=== PATIENT | female | born 2000 | race Caucasian/White ===

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

== ENCOUNTER 2018-01-25 20:23 | Inpatient (IN) ==
[2018-01-25] MEDS ORDERED: 0.9 % Sodium Chloride 1,000 ML IVC ONE (20:58)
[2018-01-25] MEDS ORDERED: Ketorolac 30 MG/ML VIAL IVP ONE (20:58)
[2018-01-25] MEDS ORDERED: Ondansetron 4 MG/2 ML VIAL IVP ONE (20:58)
[2018-01-25 21:33] LABS: Bilirubin,Urine Moderate (Negative); Blood,Urine Negative (Negative); Clarity,Urine Clear (Clear); Color,Urine Orange (Yellow); Glucose,Urine (UA) Normal (Normal); Ketones,Urine Negative (Negative); Leukocyte Esterase,Urine Trace (Negative); Nitrite,Urine Negative (Negative); Protein,Urine Trace mg/dL (Neg-Trace); Specific Gravity,Urine 1.025 (1.010-1.025); Urobilinogen,Urine Normal (Normal)
[2018-01-25 21:33] LABS: Basophils % 0.4 %; Eosinophils # 0.1 K/mcL (0.0-0.6); Eosinophils % 2.5 %; Hematocrit 37.1 % (35.3-44.9); Hemoglobin 12.3 g/dL (11.5-15.4); Immature Granulocytes % 0.2 % (0-4); Lymphocytes # 2.2 K/mcL (0.6-4.6); Lymphocytes % 39.9 %; Mean Corpuscular HGB Conc 33.2 g/dL (31.6-35.5); Mean Corpuscular Hemoglobin 30.8 pg (28.0-33.3); Mean Corpuscular Volume 92.8 fL (83.0-100.0); Mean Platelet Volume 10.6 fL (9.4-12.4); Monocytes # 0.6 K/mcL (0.0-1.3); Monocytes % 10.4 %; Neutrophils # 2.6 K/mcL (1.6-8.9); Platelet Count 262 K/mcL (140-400); Red Cell Distribution Width 13.7 % (11.5-14.5); Segmented Neutrophils % 46.6 %
[2018-01-25 21:35] LABS: Hyaline Casts,Urine None Seen per lpf (None-Few); RBC,Urine 0-3 per hpf (0-3); Squamous Epithelial Cell,Urine Many per lpf (None-Few); WBC,Urine 0-3 per hpf (0-3)
[2018-01-25 21:43] LABS: Bacteria,Urine Few per hpf (None-Few); Mucus,Urine Moderate (Few)
[2018-01-25 21:46] LABS: Alanine Aminotransferase 194 Units/L (7-52); Albumin 4.2 g/dL (3.5-5.7); Albumin/Globulin Ratio 1.4 (1.1-2.2); Alkaline Phosphatase 247 Units/L (34-104); Aspartate Amino Transferase 163 Units/L (13-39); BUN/Creatinine Ratio 15 (6-26); Bilirubin,Direct 1.6 mg/dL (0.0-0.2); Bilirubin,Indirect 0.5 mg/dL (0.0-1.2); Bilirubin,Total 2.1 mg/dL (0.3-1.0); Blood Urea Nitrogen 7 mg/dL (6-20); Calcium 9.6 mg/dL (8.6-10.3); Carbon Dioxide 27 mEq/L (23-29); Chloride 107 mEq/L (98-107); Globulin 2.9 g/dL (2.4-3.5); Glucose 96 mg/dL (70-105); Lipase 33 Units/L (11-82); Osmolality,Calculated 286 (280-300); Potassium 3.7 mEq/L (3.5-5.1); Sodium 139 mEq/L (136-145); Total Protein 7.1 g/dL (6.4-8.9); eGFR For African Americans > 60; eGFR For Non-African Americans > 60
[2018-01-25] MEDS ORDERED: *HR* HYDROcodone/Acet 5/325 mg TABLET PO ONE (21:56)
--- NOTE | 2018-01-25 22:46 | Emergency Department Note ---
Disposition Clinical Impression: Acute cholecystitis, Transaminitis Disposition: Admitted As Inpatient Condition: Fair Time of Disposition: 23:42 Abdominal Pain HPI - General Chief Complaint: ED Abdominal Pain Stated Complaint: Abdominal Pain Time Seen by Provider: 01/25/18 20:51 Source: patient Mode of arrival: ambulatory Limitations: no limitations Nursing Notes Reviewed: Yes Vital Signs Reviewed: Yes - History of Present Illness HPI Narrative: Patient is a 17-year-old female who presents to [facility] ED with a chief complaint of right upper quadrant abdominal pain. States she was seen here for it several days ago and was diagnosed with gallstones. States she was told to follow up on an outpatient basis with surgery. She does have been appointment scheduled though it is not for several weeks. States she cannot wait that long because she has had progressive pain. Denies any nausea, vomiting, fever or chills. No chest pain, difficulty breathing, problems with urination or bowel movements. States her pain has been worsening and she cannot tolerate it. Pt Subjective Complaint: abdominal pain Onset (ago): day(s) Consistency: Worsening Location: RUQ Pain Severity: severe Pain Scale: 10 Quality: aching Radiation: none Migration to: no migration Improves with: nothing Worsens with: eating Associated symptoms: Reports: nausea. Denies: vomiting, diarrhea, fever, chills , constipation, dysuria Treatments prior to arrival: none - Related Data Home Medications Medication Instructions Recorded Confirmed Vit Calc,Iron,Folic 1 each PO DAILY 10/26/17 11/14/17 [ Vitamins] Previous Rx's Medication Instructions Recorded Benzocaine/Menthol [place] 1 appl TP QID PRN aerosol 11/19/17 [Dermoplast [place]] Buprenorphine HCl [Subutex] 8 mg SL BID tab.subl 11/19/17 Ibuprofen [Motrin] 600 mg PO Q6HR PRN #60 tablet 11/19/17 Ibuprofen [Motrin] 600 mg PO Q8HR #20 tab 01/20/18 HYDROcodone/Acet 5/325 mg [[place] 1 tab PO Q6H PRN 2 Days #8 tab 01/22/18 5-325 mg] Ondansetron ODT [Zofran ODT] 4 mg SL Q6HR #8 tab.rapdis 01/22/18 Sulfamethoxazole/Trimeth DS 1 each PO BID #6 tablet 04/04/18 [Bactrim DS] Allergies Allergy/AdvReac Type Severity Reaction Status Date / Time Amoxicillin [From Augmentin] AdvReac Agitated Verified 01/25/18 20:26 clavulanic acid AdvReac Agitated Verified 01/25/18 20:26 [From Augmentin] All systems ED: reviewed and negative except as stated. Abdominal Pain PMH - Past Medical History Medical history: Reports: asthma Female Surgical History: Reports: Tonsillectomy Psychiatric history: Reports: no psych history - Social History Smoking status: Current every day smoker Alcohol use: Reports: none Drug use: Reports: none, opiates Physical Exam - General Limitations: no limitations General appearance: alert - Head Head exam: atraumatic, normocephalic, normal inspection - Eye Eye exam: Present: normal appearance, EOMI - ENT ENT exam: normal exam, normal oropharynx, mucous membranes moist - Neck Neck exam: Present: normal inspection, full ROM, trachea midline - Chest Chest inspection: Present: normal inspection, symmetric chest wall rise - Respiratory Respiratory exam: Present: normal lung sounds bilaterally - Cardiovascular Cardiovascular exam: Present: regular rate, normal rhythm, normal heart sounds - Abdominal Exam Abdominal exam: Present: soft, tenderness, normal bowel sounds Abdominal tenderness: Present: RUQ, moderate - Extremities Exam Extremities exam: Present: normal inspection, full ROM. Absent: tenderness, pedal edema - Back Exam Back exam: Present: normal inspection, full ROM. Absent: tenderness - Neurological Exam Neurological exam: Present: alert, oriented X3 - Psychiatric Psychiatric exam: Present: normal affect, normal mood - Skin Skin exam: Present: warm, dry, intact, normal color Course Course Narrative: Patient seen and examined. Recent diagnosis of cholelithiasis with elevated LFTs. Repeat labwork shows continued transaminitis. Gallbladder ultrasound ordered. I discussed the case with surgeon Dr. Gomez who has accepted patient for admission. Vital Signs Temperature 98.2 F 01/25/18 20:24 Pulse Rate 105 01/25/18 20:24 Respiratory Rate 16 01/25/18 20:24 Blood Pressure 134/87 01/25/18 20:24 O2 Sat by Pulse Oximetry 99 01/25/18 20:24 Temperature 98.2 F 01/25/18 20:24 Pulse Rate 82 01/25/18 22:12 Respiratory Rate 16 01/25/18 22:12 Blood Pressure 88/61 01/25/18 22:12 O2 Sat by Pulse Oximetry 98 01/25/18 21:12 Oxygen Delivery Oxygen Delivery Room Air Abdominal Pain - Medical Records Medical records reviewed: Yes I reviewed the patient's medical records. - Lab Data Lab results reviewed: Yes I reviewed the patient's lab results. Result diagrams: 01/25/18 21:01 01/25/18 21:01 Lab Results 01/25/18 01/25/18 01/25/18 Range/Units 21: 21: 21:01 WBC 5.6 (4.3-11.1) K/mcL RBC 4.00 (3.82-4.97) M/mcL Hgb 12.3 (11.5-15.4) g/dL Hct 37.1 (35.3-44.9) % MCV 92.8 (83.0-100.0) fL MCH 30.8 (28.0-33.3) pg MCHC 33.2 (31.6-35.5) g/dL RDW 13.7 (11.5-14.5) % Plt Count 262 (140-400) K/mcL MPV 10.6 (9.4-12.4) fL Immature Gran % 0.2 (0-4) % Seg Neutrophils % 46.6 % Lymphocytes % 39.9 % Monocytes % 10.4 % Eosinophils % 2.5 % Basophils % 0.4 % Neutrophils # 2.6 (1.6-8.9) K/mcL Lymphocytes # 2.2 (0.6-4.6) K/mcL Monocytes # 0.6 (0.0-1.3) K/mcL Eosinophils # 0.1 (0.0-0.6) K/mcL Basophils # 0.0 (0.0-0.2) K/mcL Sodium 139 (136-145) mEq/L Potassium 3.7 (3.5-5.1) mEq/L Chloride 107 (98-107) mEq/L Carbon Dioxide 27 (23-29) mEq/L BUN 7 (6-20) mg/dL Creatinine 0.46 L (0.60-1.20) mg/dL Est GFR ( Amer) > 60 Est GFR (Non-Af Amer) > 60 BUN/Creatinine Ratio 15 (6-26) Glucose 96 (70-105) mg/dL Calculated Osmolality 286 (280-300) Lactic Acid 1.0 (0.5-2.2) mmol/L Calcium 9.6 (8.6-10.3) mg/dL Total Bilirubin 2.1 H (0.3-1.0) mg/dL Direct Bilirubin 1.6 H (0.0-0.2) mg/dL Indirect Bilirubin 0.5 (0.0-1.2) mg/dL AST 163 H (13-39) Units/L ALT 194 H (7-52) Units/L Alkaline Phosphatase 247 H (34-104) Units/L Serum Total Protein 7.1 (6.4-8.9) g/dL Albumin 4.2 (3.5-5.7) g/dL Globulin 2.9 (2.4-3.5) g/dL Albumin/Globulin Ratio 1.4 (1.1-2.2) Lipase 33 (11-82) Units/L Urine Color (Yellow) Urine Clarity (Clear) Urine pH (5.0-8.0) pH Units Ur Specific [place] (1.010-1.025) Urine Protein (Neg-Trace) mg/dL Urine Glucose (UA) (Normal) mg/dL Urine Ketones (Negative) mg/dL Urine Blood (Negative) Urine Nitrite (Negative) Urine Bilirubin (Negative) Urine Urobilinogen (Normal) mg/dL Ur Leukocyte Esterase (Negative) Urine Microscopic RBC (0-3) per hpf Urine Microscopic WBC (0-3) per hpf Ur Squamous Epith Cells (None-Few) per lpf Urine Bacteria (None-Few) per hpf Hyaline Casts (None-Few) per lpf Urine Mucus (Few) Ur Culture Indicated? (NO) 01/25/18 Range/Units 21:20 WBC (4.3-11.1) K/mcL RBC (3.82-4.97) M/mcL Hgb (11.5-15.4) g/dL Hct (35.3-44.9) % MCV (83.0-100.0) fL MCH (28.0-33.3) pg MCHC (31.6-35.5) g/dL RDW (11.5-14.5) % Plt Count (140-400) K/mcL MPV (9.4-12.4) fL Immature Gran % (0-4) % Seg Neutrophils % % Lymphocytes % % Monocytes % % Eosinophils % % Basophils % % Neutrophils # (1.6-8.9) K/mcL Lymphocytes # (0.6-4.6) K/mcL Monocytes # (0.0-1.3) K/mcL Eosinophils # (0.0-0.6) K/mcL Basophils # (0.0-0.2) K/mcL Sodium (136-145) mEq/L Potassium (3.5-5.1) mEq/L Chloride (98-107) mEq/L Carbon Dioxide (23-29) mEq/L BUN (6-20) mg/dL Creatinine (0.60-1.20) mg/dL Est GFR ( Amer) Est GFR (Non-Af Amer) BUN/Creatinine Ratio (6-26) Glucose (70-105) mg/dL Calculated Osmolality (280-300) Lactic Acid (0.5-2.2) mmol/L Calcium (8.6-10.3) mg/dL Total Bilirubin (0.3-1.0) mg/dL Direct Bilirubin (0.0-0.2) mg/dL Indirect Bilirubin (0.0-1.2) mg/dL AST (13-39) Units/L ALT (7-52) Units/L Alkaline Phosphatase (34-104) Units/L Serum Total Protein (6.4-8.9) g/dL Albumin (3.5-5.7) g/dL Globulin (2.4-3.5) g/dL Albumin/Globulin Ratio (1.1-2.2) Lipase (11-82) Units/L Urine Color [place] A (Yellow) Urine Clarity Clear (Clear) Urine pH 7.0 (5.0-8.0) pH Units Ur Specific [place] 1.025 (1.010-1.025) Urine Protein Trace (Neg-Trace) mg/dL Urine Glucose (UA) Normal (Normal) mg/dL Urine Ketones Negative (Negative) mg/dL Urine Blood Negative (Negative) Urine Nitrite Negative (Negative) Urine Bilirubin Moderate H (Negative) Urine Urobilinogen Normal (Normal) mg/dL Ur Leukocyte Esterase Trace H (Negative) Urine Microscopic RBC 0-3 (0-3) per hpf Urine Microscopic WBC 0-3 (0-3) per hpf Ur Squamous Epith Cells Many H (None-Few) per lpf Urine Bacteria Few (None-Few) per hpf Hyaline Casts None Seen (None-Few) per lpf Urine Mucus Moderate H (Few) Ur Culture Indicated? NO. (NO) - Radiology Data Radiology results reviewed: Yes I reviewed the patient's radiology results. Attestation Statement - Attestation Attestation: I examined this patient and my medical decision-making was reviewed with the Resident Physician. I agree with the documented findings, disposition and treatment plan as described except to the extent set forth below. Patient presents with concern for right upper quadrant pain. There is ongoing transaminitis. There is elevated bilirubin. I would be concerned for acute cholecystitis. We will proceed with admission to the surgical services for further management. Of note the patient has prescribe Suboxone. She denies actually taking this medication however was filled on January 23 this month. I did tell her that it is important to disclose if she is on contract for pain management however she denies getting this medication, filling this medication, seeing a Subutex physician. I did inform the patient that we will be notifying her primary prescriber as she is in breach of her pain management contract. Family members were asked to leave the room before discussing any information with the patient as to prevent breach of HIPPA. I assured the patients privacy prior to discussing pain management with the patient.
[2018-01-25] MEDS ORDERED: 0.9 % Sodium Chloride 1,000 ML IVC SCH (23:45)
[2018-01-25] MEDS ORDERED: Ondansetron 4 MG/2 ML VIAL IVP PRN (23:59)
[2018-01-25] MEDS ORDERED: *HR* OxyCODONE/APAP 10/325 TABLET PO PRN (23:59)
[2018-01-26] MEDS: cefOXitin 2,000 MG in Water for inj. (sterile) 20 ML 20 ML IVPB SCH ×4 (01:04→23:24)
[2018-01-26 06:54] LABS: Basophils % 0.5 %; Eosinophils # 0.2 K/mcL (0.0-0.6); Eosinophils % 2.8 %; Hematocrit 34.6 % (35.3-44.9); Hemoglobin 11.3 g/dL (11.5-15.4); Immature Granulocytes % 0.2 % (0-4); Lymphocytes # 2.1 K/mcL (0.6-4.6); Lymphocytes % 37.5 %; Mean Corpuscular HGB Conc 32.7 g/dL (31.6-35.5); Mean Corpuscular Hemoglobin 30.6 pg (28.0-33.3); Mean Corpuscular Volume 93.8 fL (83.0-100.0); Monocytes # 0.6 K/mcL (0.0-1.3); Monocytes % 9.9 %; Neutrophils # 2.8 K/mcL (1.6-8.9); Platelet Count 253 K/mcL (140-400); Red Blood Count 3.69 M/mcL (3.82-4.97); Red Cell Distribution Width 13.9 % (11.5-14.5); Segmented Neutrophils % 49.1 %
[2018-01-26 07:11] LABS: Alanine Aminotransferase 168 Units/L (7-52); Albumin 3.5 g/dL (3.5-5.7); Albumin/Globulin Ratio 1.4 (1.1-2.2); Alkaline Phosphatase 217 Units/L (34-104); Aspartate Amino Transferase 133 Units/L (13-39); BUN/Creatinine Ratio 13 (6-26); Bilirubin,Total 2.1 mg/dL (0.3-1.0); Blood Urea Nitrogen 7 mg/dL (6-20); Calcium 8.7 mg/dL (8.6-10.3); Carbon Dioxide 23 mEq/L (23-29); Chloride 112 mEq/L (98-107); Globulin 2.5 g/dL (2.4-3.5); Glucose 89 mg/dL (70-105); Osmolality,Calculated 287 (280-300); Potassium 4.1 mEq/L (3.5-5.1); Sodium 140 mEq/L (136-145); eGFR For African Americans > 60; eGFR For Non-African Americans > 60
--- NOTE | 2018-01-26 08:28 | General Surg History&Physical ---
Date of Encounter: 01/26/18 Time of Encounter: 08:20 Assessment and Plan (1) Acute cholecystitis Current Visit: Yes Status: Acute The assessment and plan as outlined above was discussed with the patient and/or family members who expressed understanding and agreement. All questions were answered. The patient has cholelithiasis and biliary sludge. Pericholecystic fluid is equivocal. Gallbladder wall is thickened. She does have right upper quadrant pain which is recurrent and not responsive to narcotic drug therapy. She is currently on Suboxone. She has a personal history of IV drug use and shared needles. Because of her elevated transaminases I think it is important to obtain repeat hepatitis testing prior to surgery. I have requested hepatitis testing which is not traditionally done on the weekends here at [facility]. If the testing is unavailable, I will need to make a decision as to whether or not to proceed with surgery without testing. History of Present Illness Chief complaint: Right upper quadrant pain HPI: Ms. Rivera is a 17 year old female Who is from 2 months ago area she has a previous history of heroin use and is currently on Suboxone program. She presents to the emergency room for recurrent right upper quadrant pain. An ultrasound demonstrated cholelithiasis and biliary sludge as well as pericholecystic fluid suggesting acute cholecystitis gallbladder wall is thickened. It is noted that she did not have sonographic Romero sign. Patient states she has had a worsening right upper quadrant pain and frequency and duration. She sought evaluation in the emergency room and was noted to have normal white blood cell count but elevated bilirubin at 2.1 and elevated transaminases. She was tested for hepatitis 2 months ago with her . She reports the hepatitis testing was negative. She now presents for urgent laparoscopic cholecystectomy. Because of the elevated bilirubin and transaminases with past history of intravenous drug abuse , I would like to repeat her hepatitis testing prior to surgery. Past Med Surg Social Fam HX - Past Medical History Medical history: asthma Psychiatric history: no psych history - Past Surgical History Surgical History: no surgical history - Social History Smoking Status: Current every day smoker Packs per day: 1/2 Smokeless Tobacco Status: No Alcohol use: none Drug use: none, opiates - Family History Father Adopted: No Living Status: Still Living Hx Family Cardiac Disorders: No Hx Family Respiratory Disorders: No Hx Family Cancer: No Hx Family GI Disorders: No Hx Family Endocrine Disorder: No Hx Family Neuromuscular Disorders: No Hx Family Neurologic Disorders: No Hx Family HEENT Disorders: No Hx Family Autoimmune Disorders: No Mother Adopted: [place]: Yanet Rivera Age: 37 Family Member Ethnicity: Non- Living Status: Still Living Hx Family Cardiac Disorders: Yes (HTN) Hx Family Respiratory Disorders: No Hx Family Cancer: No Hx Family GI Disorders: No Hx Family Endocrine Disorder: No Hx Family Neuromuscular Disorders: Yes (migraines) Hx Family Neurologic Disorders: No Hx Family HEENT Disorders: No Hx Family Autoimmune Disorders: No Medications and Allergies Vit Calc,Iron,Folic [ Vitamins] 1 each PO DAILY 10/26/17 [ History] Benzocaine/Menthol [place] [Dermoplast [place]] 1 appl TP QID PRN aerosol 11/19/17 [Rx] Buprenorphine HCl [Subutex] 8 mg SL BID tab.subl 11/19/17 [Rx] Ibuprofen [Motrin] 600 mg PO Q6HR PRN #60 tablet 11/19/17 [Rx] Ibuprofen [Motrin] 600 mg PO Q8HR #20 tab 01/20/18 [Rx] HYDROcodone/Acet 5/325 mg [[place] 5-325 mg] 1 tab PO Q6H PRN 2 Days #8 tab [Rx] Ondansetron ODT [Zofran ODT] 4 mg SL Q6HR #8 tab.rapdis 01/22/18 [Rx] Sulfamethoxazole/Trimeth DS [Bactrim DS] 1 each PO BID #6 tablet 01/22/18 [Rx] 3 Allergy/AdvReac Type Severity Reaction Status Date / Time Amoxicillin [From Augmentin] AdvReac Agitated Verified 01/25/18 20:26 clavulanic acid AdvReac Agitated Verified 01/25/18 20:26 [From Augmentin] Review of Systems All systems PM: The remainder of the systems were reviewed and are negative General Surgery Exam Initial Vital Signs Temp Pulse Resp BP Pulse Ox 98.2 F 105 16 134/87 99 01/25/18 20:24 01/25/18 20:24 01/25/18 20:24 01/25/18 20:24 01/25/18 20:24 - General physical appearance well developed, well nourished, no distress - Neck no masses, no bruits, trachea midline, no lymphadectomy, no venous distension - Respiratory normal expansion, normal respiratory effort, clear to percussion, clear to auscultation - Cardiovascular Cardiovascular exam: Present: RRR, no murmurs/rubs/gallops - Abdomen Abdomen general surgery: Present: bowel sounds present, tender Abdominal Tenderness: Present: RUQ Hernia: Present: none - Integumentary Integumentary general surgery: Present: warm and dry, no abnormal pigmentation - Neurologic Present: CN 2-12 grossly intact, normal coordination, normal sensation - Psychiatric Psychiatric general surgery: Present: appropriate, oriented to person, oriented to place, oriented to time, speech is normal, memory intact Results - Labs 01/26/18 05:47 01/26/18 05:47 Abnormal lab results RBC 3.69 M/mcL (3.82-4.97) L 01/26/18 05:47 Hgb 11.3 g/dL (11.5-15.4) L 01/26/18 05:47 Hct 34.6 % (35.3-44.9) L 01/26/18 05:47 Chloride 112 mEq/L (98-107) H 01/26/18 05:47 Creatinine 0.54 mg/dL (0.60-1.20) L 01/26/18 05:47 Total Bilirubin 2.1 mg/dL (0.3-1.0) H 01/26/18 05:47 Direct Bilirubin 1.6 mg/dL (0.0-0.2) H 01/25/18 21:01 AST 133 Units/L (13-39) H 01/26/18 05:47 ALT 168 Units/L (7-52) H 01/26/18 05:47 Alkaline Phosphatase 217 Units/L (34-104) H 01/26/18 05:47 Serum Total Protein 6.0 g/dL (6.4-8.9) L 01/26/18 05:47 Urine Color [place] (Yellow) A 01/25/18 21:20 Urine Bilirubin Moderate (Negative) H 01/25/18 21:20 Ur Leukocyte Esterase Trace (Negative) H 01/25/18 21:20 Ur Squamous Epith Cells Many per lpf (None-Few) H 01/25/18 21:20 Urine Mucus Moderate (Few) H 01/25/18 21:20 Diabetes panel 01/26/18 Range/Units 05:47 Sodium 140 (136-145) mEq/L Potassium 4.1 (3.5-5.1) mEq/L Chloride 112 H (98-107) mEq/L Carbon Dioxide 23 (23-29) mEq/L BUN 7 (6-20) mg/dL Creatinine 0.54 L (0.60-1.20) mg/dL Glucose 89 (70-105) mg/dL Calcium 8.7 (8.6-10.3) mg/dL AST 133 H (13-39) Units/L ALT 168 H (7-52) Units/L Alkaline Phosphatase 217 H (34-104) Units/L Albumin 3.5 (3.5-5.7) g/dL Calcium panel 01/26/18 Range/Units 05:47 Calcium 8.7 (8.6-10.3) mg/dL Albumin 3.5 (3.5-5.7) g/dL Pituitary panel 01/26/18 Range/Units 05:47 Sodium 140 (136-145) mEq/L Potassium 4.1 (3.5-5.1) mEq/L Chloride 112 H (98-107) mEq/L Carbon Dioxide 23 (23-29) mEq/L BUN 7 (6-20) mg/dL Creatinine 0.54 L (0.60-1.20) mg/dL Glucose 89 (70-105) mg/dL Calcium 8.7 (8.6-10.3) mg/dL Adrenal panel 01/26/18 Range/Units 05:47 Sodium 140 (136-145) mEq/L Potassium 4.1 (3.5-5.1) mEq/L Chloride 112 H (98-107) mEq/L Carbon Dioxide 23 (23-29) mEq/L BUN 7 (6-20) mg/dL Creatinine 0.54 L (0.60-1.20) mg/dL Glucose 89 (70-105) mg/dL Calcium 8.7 (8.6-10.3) mg/dL Total Bilirubin 2.1 H (0.3-1.0) mg/dL AST 133 H (13-39) Units/L ALT 168 H (7-52) Units/L Alkaline Phosphatase 217 H (34-104) Units/L Albumin 3.5 (3.5-5.7) g/dL All other labs normal. - Imaging US - abdomen: image reviewed (I personally reviewed the ultrasound images and the patient has cholelithiasis and gallbladder sludge with a thickened gallbladder wall. Pericholecystic fluid is equivocal)
[2018-01-26 09:47] LABS: Hepatitis A Antibody IgM Nonreactive (Nonreactive); Hepatitis B Core IgM Nonreactive (Nonreactive); Hepatitis B Surface Antigen Nonreactive (Nonreactive); Hepatitis C Virus Antibody Nonreactive (Nonreactive)
[2018-01-26] MEDS ORDERED: cefOXitin 1,000 MG, 0.9 % Sodium Chloride 1,000 ML IR ONE (10:00)
[2018-01-26] MEDS: Albuterol 2.5 MG/3 ML NEBULIZER IH ONE ×2 (11:00→11:25)
--- NOTE | 2018-01-26 11:08 | Anesthesia Evaluation PreOp ---
Date of Encounter: 01/26/18 Time of Encounter: 11:05 - Past History Planned Operation: Lap Cholecystectomy Cardiac History: Denies any Significant Hx Pulmonary History: Smoker INDUSTRIAL ENGINEERING DIRECTOR History: Denies Any Significant HX Other Medical History: Denies Any Significant HX Anesthesia History: No Prior Anesthetic Complications : No Test: Negative Alcohol Use: none Drug use: none, opiates Medications and Allergies Vit Calc,Iron,Folic [ Vitamins] 1 tab PO DAILY 10/26/17 [ History] Buprenorphine HCl [Subutex] 8 mg SL BID tab.subl 11/19/17 [Rx] Ibuprofen [Motrin] 600 mg PO Q8HR #20 tab 01/20/18 [Rx] HYDROcodone/Acet 5/325 mg [[place] 5-325 mg] 1 tab PO Q6H PRN 2 Days #8 tab [Rx] Ondansetron ODT [Zofran ODT] 4 mg SL Q6HR #8 tab.rapdis 01/22/18 [Rx] Sulfamethoxazole/Trimeth DS [Bactrim DS] 1 tab PO BID 01/26/18 [History] 3 Allergy/AdvReac Type Severity Reaction Status Date / Time Amoxicillin [From Augmentin] AdvReac Agitated Verified 01/25/18 20:26 clavulanic acid AdvReac Agitated Verified 01/25/18 20:26 [From Augmentin] - Meds/Allergy Pre-op Review Medications Reviewed: Yes Allergies Reviewed: Yes Beta Blockers on Current Med List: No Anesthesia Results - Labs 01/26/18 05:47 01/26/18 05:47 - Imaging EKG: report reviewed (ST) Anesthesia Exam Vital Signs/O2 Sat/Glucose, Most Current Temp Pulse Resp BP Pulse Ox 01/26/18 08:25 98.3 F 68 14 88/49 96 Height: 5'4 Weight: 142 lbs NPO (# of Hours): MN Pain Scale: 0 - HEENT Pupil (Motor): Pupils equal, EOMI Mallampati: II Teeth: Normal Oral Opening: Greater than 3 - INDUSTRIAL ENGINEERING DIRECTOR LOC: Oriented INDUSTRIAL ENGINEERING DIRECTOR Motor: Normal RUE, Normal LUE, Normal RLE, Normal LLE, Normal Face INDUSTRIAL ENGINEERING DIRECTOR Sensory: Normal: RUE, LUE, RLE, LLE, Face - Cardiac Rhythm: Regular Murmur: None JVD: No Carotid Bruit: No - Pulmonary Breath Sounds: bilateral Clear Respiratory Effort: Symmetrical Anesthesia Assess/Plan ASA Score: 2 Modified Jay Scale for Level of Consciousness: Cooperative, oriented, and tranquil Anesthetic Plan: General, Regional Monitoring Plan: Standard Monitors Recovery Plan: PACU (Discussed GA and TAP Block post op, agrees to proceed)
[2018-01-26] MEDS ORDERED: *HR* Propofol 200 MG/20 ML VIAL IVP ONE (11:14)
[2018-01-26] MEDS ORDERED: *HR* FentaNYL (PF) 100 MCG/2 ML VIAL ONE (11:14)
[2018-01-26] MEDS ORDERED: Lidocaine -MPF 2% 2 ML VIAL ONE (11:16)
[2018-01-26] MEDS ORDERED: Dexamethasone 4 MG/ML VIAL ONE (11:16)
[2018-01-26] MEDS ORDERED: Ondansetron 4 MG/2 ML VIAL ONE (11:16)
[2018-01-26] MEDS ORDERED: *HR* Rocuronium Bromide 50 MG/5 ML VIAL ONE (11:16)
[2018-01-26] MEDS ORDERED: ROPIVACAINE HCL/PF 0.5% 30 ML VIAL ONE (11:19)
[2018-01-26] MEDS ORDERED: Isovue-300 50 ML VIAL IVP ONE (11:20)
[2018-01-26] MEDS ORDERED: EPHEDrine 50 MG/ML VIAL ONE (11:51)
[2018-01-26] MEDS ORDERED: Ketorolac 30 MG/ML VIAL ONE (11:53)
[2018-01-26] MEDS ORDERED: *HR* EPINEPHrine 1 MG/ML AMPUL ONE (11:54)
[2018-01-26] MEDS ORDERED: Neostigmine Methylsulfate 3 MG/3 ML SYRINGE ONE (12:25)
--- NOTE | 2018-01-26 12:37 | Operative Note ---
Date of procedure: 01/26/18 Pre-op diagnosis: Acute cholecystitis and cholelithiasis Post-op diagnosis: other (Acute cholecystitis and cholelithiasis. Choledocholithiasis.) Procedure: Laparoscopic cholecystectomy, cholangiogram Anesthesia: CARLOSA Surgeon: Ady Gomez Was there an operating room assistant present: No Estimated blood loss (cc): 20 Specimen: Gallbladder and contents Condition: stable Disposition: PACU Procedure in Detail: Laparoscopic cholecystectomy and intraoperative cholangiogram Operative procedure after informed consent and appropriate patient identification timeout the patient was taken to the major operating suite and placed supine position given adequate general endotracheal anesthesia the abdomen is prepped and draped in sterile fashion utilizing ChloraPrep standard draping techniques timeout was taken patient is identified. I made a vertical midline incision below the umbilicus dissected down to level of fascia there are 2 traction stitches placed in the abdominal cavity was entered visually. A Sen trocar was placed in the abdomen and the abdomen was insufflated to 15 mmHg pressure CO2 the gallbladder was visualized. A placement 11 port in the subxiphoid area and 2 5 mm ports in the subcostal area. The gallbladder was grasped and elevated. A variety of blunt and sharp dissection techniques were used to isolate the cystic duct and cystic artery. The cystic artery was controlled with 2 surgical clips proximally and one distally and it was divided I placed a surgical clip on the neck the gallbladder and obtained an intraoperative cholangiogram using 10 mL of Isovue. Intraoperative cholangiogram demonstrated 2 ulcers of stricture in the common bile duct one at the confluence and one just above the distal bile duct. There was also an impacted stone and a stone just above this and the distal bile duct. The patient will be held for likely ERCP tomorrow. The cholangiocatheter was removed and the cystic duct was controlled with 2 surgical clips proximally and was divided the gallbladder was removed from the gallbladder fossae using electrocautery. The gallbladder was removed through the #11 port site. I replaced the #11 port and irrigated with copious amounts of antibiotic containing solution. There is no evidence of bleeding or bile leak. All trochars were removed. Fascia was closed with 0 Vicryl skin with 2- 0 and 4-0 Vicryl she tolerated the procedure well and was transferred to recovery in stable condition
--- NOTE | 2018-01-26 13:01 | Anesthesia Procedures ---
Date of Encounter: 01/26/18 Time of Encounter: 11:05 Procedures: Anesthesia - Nerve Block Procedure Date: 01/26/18 Time: 12:45 Pre-op Diagnosis: Acute Cholecystitis Surgical Procedure: Lap Cholecystectomy Checklist: Correct Patient Identifier Blood Thinner: No Monitor Applied: EKG, BP, Pulse Oximetry Indication: Post Op Analgesia Pre-op Neuro Deficits: No Block Type: Other (TAP Block Right side) Catheter placed: No Depth at skin (cm): 3 Sterile Technique: Yes Ultrasound used: Yes Anatomy identified: Yes Visual spread of Local: Yes Neuro Stimulation: No Blood on Needle Aspiration: No Smooth Injection of Local: Yes Pain with Injection of Local: No Prep: Chlorhexadine Needle: 21 x 100 mm Stimuplex Local: Ropivacaine (0.5%), Other (epinephrine wash) Volume (cc): 30 Number of Attempts: 1 Complications: None/effective block Vitals: Vital Signs/O2 Sat/Glucose, Most Current Temp Pulse Resp BP Pulse Ox 01/26/18 12:50 98.3 F 58 14 117/67 100
--- NOTE | 2018-01-26 13:02 | Anesthesia Evaluation Post Op ---
Date of Encounter: 01/26/18 Time of Encounter: 13:10 - Vital Signs Vital Signs: Vital Signs/O2 Sat/Glucose, Most Current Temp Pulse Resp BP Pulse Ox 01/26/18 12:50 98.3 F 58 14 117/67 100 - Lungs Lungs: Clear Ascult./Percussion - Airway Airway: Non-obstructed - Cardiovascular Regular Rate - Mental Status Mental Status: Alert & Oriented, Answers Appropriately - Pain Pain Scale: 1 - Nausea Vomiting Nausea Vomiting: Not Present - Hydration Hydration: Ice chips - Discharge PostOp Status: Transfer Patient to floor
[2018-01-26] MEDS ORDERED: Ondansetron 4 MG/2 ML VIAL IVP PRN (19:46)
[2018-01-26] MEDS: 0.9 % Sodium Chloride 1,000 ML IVC SCH (20:23)
[2018-01-26] MEDS: *HR* OxyCODONE/APAP 10/325 TABLET PO PRN (20:23)
[2018-01-27] MEDS: *HR* OxyCODONE/APAP 10/325 TABLET PO PRN ×3 (02:39→18:31)
[2018-01-27] MEDS: 0.9 % Sodium Chloride 1,000 ML IVC SCH (05:58)
--- NOTE | 2018-01-27 08:31 | General Surgery Progress Note ---
Addendum entered and electronically signed by Gregor Avila DO 01/27/18 10:13 : patient WBC elevated to 14.7 today was 5.7 Prior to surgery. Likely reactive s/ p surgery. Patient is afebrile and incisions are c/d/i. Original Note: <Gregor Avila - Last Filed: 01/27/18 09:38> Date of Encounter: 01/27/18 Time of Encounter: 07:00 - Assessment and Plan (1) Acute cholecystitis Current Visit: Yes Status: Acute Pt is POD #1 s/p Lap choly Patient's intraopperative cholangiogram demonstrated multiple strictures and obstructing gallstone. Consult has been palce to DR. Canela of GI for evaluation for ERCP Patient's pain control is difficult secondary to her Heroina nd now suboxone use. Continue current supportive care. Subjective Patient reports: still having pain, voiding w/o difficulty, no flatus, no bowel movement, afebrile Narrative: Ms. 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 Patient reports pain worse today than presurgery. She is unable to describe her pain but indicates pain is in the epigastric region. Patient denies bowel movement, flatus, N, V, D. Objective Vital Signs - Last 8 Hours Temp Pulse Resp BP Pulse Ox 01/27/18 07:15 98.1 F 66 15 120/80 100 01/27/18 02:40 98.5 F 73 14 100/59 98 Intake and Output 01/26/18 01/27/18 01/27/18 23:59 07:59 15:59 Intake Total 20 / 20 1000 / 1000 Output Total 0 / 0 0 / 0 Balance 20 / 20 1000 / 1000 Intake: IV Fluids 20 / 20 1000 / 1000 0.9 % Sodium Chloride 1,000 ML 1000 / 1000 @ 75 mls/hr IVC .[id number] [facility] Rx #:[id number] Mefoxin 2,000 MG In Water for 20 / 20 inj. (sterile) 20 ML @ 300 mls/ hr IVPB Q8HR [facility] Rx#:[id number] Oral 0 / 0 0 / 0 Output: Urine 0 / 0 0 / 0 Other: Meal npo # Voids 1 1 Weight 64.8 kg Blood Glucose* 95 Patient Weight 04/09/18 23:59 Weight 64.8 kg - General physical appearance well developed, well nourished, no distress, severe pain - Eyes normal ocular movement - Respiratory normal expansion, normal respiratory effort, clear to auscultation - Cardiovascular Cardiovascular exam: Present: RRR, no murmurs/rubs/gallops - Abdomen Abdomen: Present: bowel sounds present, soft, tender (diffusely), surgical scars - Incision Incision: Present: clean and dry, intact - Neurologic normal coordination, normal sensation - Psychiatric oriented to time, oriented to person, oriented to place, speech is normal, memory intact - Labs 01/27/18 08:34 01/27/18 08:34 - VTE Documentation of Mechanical Device: Intermittent pneumatic compression device Consult Discharge Plan - Plan Referrals: NONE,PCP [Primary Care Provider] - <Ady Gomez - Last Filed: 01/27/18 13:57> Date of Encounter: 01/27/18 - Assessment and Plan (1) Acute cholecystitis Current Visit: Yes Status: Acute Objective Vital Signs - Last 8 Hours Temp Pulse Resp BP Pulse Ox 01/27/18 13:35 98.6 F 72 20 113/70 95 01/27/18 10:35 98.6 F 72 15 116/77 99 01/27/18 07:15 98.1 F 66 15 120/80 100 Intake and Output 01/26/18 01/27/18 01/27/18 23:59 07:59 15:59 Intake Total 20 / 20 1000 / 1000 20 / 20 Output Total 0 / 0 0 / 0 Balance 20 / 20 1000 / 1000 20 / 20 Intake: IV Fluids 20 / 20 1000 / 1000 20 / 20 0.9 % Sodium Chloride 1,000 ML 1000 / 1000 @ 75 mls/hr IVC .[id number] [facility] Rx #:[id number] Mefoxin 2,000 MG In Water for 20 / 20 20 / 20 inj. (sterile) 20 ML @ 300 mls/ hr IVPB Q8HR [facility] Rx#:[id number] Oral 0 / 0 0 / 0 0 / 0 Output: Urine 0 / 0 0 / 0 Other: Meal npo NPO # Voids 1 1 1 Weight 64.8 kg Blood Glucose* 95 87 Patient Weight 01/27/18 23:59 Weight 64.8 kg - Labs 01/27/18 08:34 01/27/18 08:34 Diabetes panel 01/27/18 Range/Units 08:34 Sodium 137 (136-145) mEq/L Potassium 3.4 L (3.5-5.1) mEq/L Chloride 107 (98-107) mEq/L Carbon Dioxide 30 H (23-29) mEq/L BUN 8 (6-20) mg/dL Creatinine 0.55 L (0.60-1.20) mg/dL Glucose 100 (70-105) mg/dL Calcium 9.1 (8.6-10.3) mg/dL AST 117 H (13-39) Units/L ALT 180 H (7-52) Units/L Alkaline Phosphatase 220 H (34-104) Units/L Albumin 3.8 (3.5-5.7) g/dL Calcium panel 01/27/18 Range/Units 08:34 Calcium 9.1 (8.6-10.3) mg/dL Albumin 3.8 (3.5-5.7) g/dL Pituitary panel 01/27/18 Range/Units 08:34 Sodium 137 (136-145) mEq/L Potassium 3.4 L (3.5-5.1) mEq/L Chloride 107 (98-107) mEq/L Carbon Dioxide 30 H (23-29) mEq/L BUN 8 (6-20) mg/dL Creatinine 0.55 L (0.60-1.20) mg/dL Glucose 100 (70-105) mg/dL Calcium 9.1 (8.6-10.3) mg/dL Adrenal panel 01/27/18 Range/Units 08:34 Sodium 137 (136-145) mEq/L Potassium 3.4 L (3.5-5.1) mEq/L Chloride 107 (98-107) mEq/L Carbon Dioxide 30 H (23-29) mEq/L BUN 8 (6-20) mg/dL Creatinine 0.55 L (0.60-1.20) mg/dL Glucose 100 (70-105) mg/dL Calcium 9.1 (8.6-10.3) mg/dL Total Bilirubin 1.4 H (0.3-1.0) mg/dL AST 117 H (13-39) Units/L ALT 180 H (7-52) Units/L Alkaline Phosphatase 220 H (34-104) Units/L Albumin 3.8 (3.5-5.7) g/dL - Attending Attestation I examined this patient and my medical decision-making was reviewed with the Resident Physician. I agree with the documented findings, disposition and treatment plan as described except to the extent set forth below. The patient is seen and evaluated on morning rounds. I discussed her case with gastroenterology. She will likely have ERCP later today clear the distal common bile duct. Ady Gomez MD FACS
[2018-01-27 08:46] LABS: Basophils % 0.1 %; Eosinophils % 0.1 %; Hematocrit 35.8 % (35.3-44.9); Hemoglobin 11.8 g/dL (11.5-15.4); Immature Granulocytes % 0.4 % (0-4); Immature Platelets 4.2 % (1.1-6.1); Lymphocytes # 1.9 K/mcL (0.6-4.6); Lymphocytes % 13.2 %; Mean Corpuscular Hemoglobin 30.3 pg (28.0-33.3); Mean Platelet Volume 10.3 fL (9.4-12.4); Monocytes % 7.1 %; Neutrophils # 11.6 K/mcL (1.6-8.9); Platelet Count 288 K/mcL (140-400); Red Blood Count 3.89 M/mcL (3.82-4.97); Red Cell Distribution Width 14.3 % (11.5-14.5); Segmented Neutrophils % 79.1 %
[2018-01-27] MEDS: cefOXitin 2,000 MG in Water for inj. (sterile) 20 ML 20 ML IVPB SCH ×2 (09:02→16:46)
[2018-01-27 09:09] LABS: Alanine Aminotransferase 180 Units/L (7-52); Albumin 3.8 g/dL (3.5-5.7); Albumin/Globulin Ratio 1.4 (1.1-2.2); Alkaline Phosphatase 220 Units/L (34-104); Aspartate Amino Transferase 117 Units/L (13-39); BUN/Creatinine Ratio 15 (6-26); Bilirubin,Direct 0.7 mg/dL (0.0-0.2); Bilirubin,Indirect 0.7 mg/dL (0.0-1.2); Bilirubin,Total 1.4 mg/dL (0.3-1.0); Blood Urea Nitrogen 8 mg/dL (6-20); Calcium 9.1 mg/dL (8.6-10.3); Carbon Dioxide 30 mEq/L (23-29); Chloride 107 mEq/L (98-107); Globulin 2.8 g/dL (2.4-3.5); Glucose 100 mg/dL (70-105); Osmolality,Calculated 282 (280-300); Potassium 3.4 mEq/L (3.5-5.1); Sodium 137 mEq/L (136-145); Total Protein 6.6 g/dL (6.4-8.9); eGFR For African Americans > 60; eGFR For Non-African Americans > 60
[2018-01-27] MEDS ORDERED: Ketorolac 30 MG/ML VIAL IVP ONE ×2 (10:44→22:23)
[2018-01-27] MEDS ORDERED: Lidocaine -MPF 2% 2 ML VIAL ONE (12:16)
[2018-01-27] MEDS ORDERED: Lidocaine -MPF 4% 5 ML AMPUL ONE (12:16)
[2018-01-27] MEDS ORDERED: *HR* FentaNYL (PF) 100 MCG/2 ML VIAL ONE (12:16)
[2018-01-27] MEDS ORDERED: *HR* Succinylcholine 200 MG/10 ML VIAL IVP ONE (12:16)
[2018-01-27] MEDS ORDERED: Ondansetron 4 MG/2 ML VIAL ONE (12:16)
[2018-01-27] MEDS ORDERED: *HR* Midazolam HCl 2 MG/2 ML VIAL ONE (12:16)
[2018-01-27] MEDS ORDERED: *HR* Rocuronium Bromide 50 MG/5 ML VIAL ONE (12:16)
[2018-01-27] MEDS ORDERED: *HR* Propofol 200 MG/20 ML VIAL IVP ONE (12:16)
[2018-01-27] MEDS ORDERED: Dexamethasone 4 MG/ML VIAL ONE (12:16)
--- NOTE | 2018-01-27 12:24 | Anesthesia Evaluation PreOp ---
Date of Encounter: 01/27/18 Time of Encounter: 12:22 - Past History Planned Operation: ERCP Cardiac History: Denies any Significant Hx Pulmonary History: Smoker [employer] History: Denies Any Significant HX Other Medical History: Denies Any Significant HX Anesthesia History: No Prior Anesthetic Complications, Past Anesthesia (Lap. Jenniffer) : No Test: Negative (01/20/18) Alcohol Use: none Drug use: none, opiates Medications and Allergies Vit Calc,Iron,Folic [ Vitamins] 1 tab PO DAILY 10/26/17 [ History] Buprenorphine HCl [Subutex] 8 mg SL BID tab.subl 11/19/17 [Rx] Ibuprofen [Motrin] 600 mg PO Q8HR #20 tab 01/20/18 [Rx] HYDROcodone/Acet 5/325 mg [[place] 5-325 mg] 1 tab PO Q6H PRN 2 Days #8 tab [Rx] Ondansetron ODT [Zofran ODT] 4 mg SL Q6HR #8 tab.rapdis 01/22/18 [Rx] Sulfamethoxazole/Trimeth DS [Bactrim DS] 1 tab PO BID 01/26/18 [History] 3 Allergy/AdvReac Type Severity Reaction Status Date / Time Amoxicillin [From Augmentin] AdvReac Agitated Verified 01/25/18 20:26 clavulanic acid AdvReac Agitated Verified 01/25/18 20:26 [From Augmentin] - Meds/Allergy Pre-op Review Medications Reviewed: Yes Allergies Reviewed: Yes Beta Blockers on Current Med List: No Anesthesia Results - Labs 01/27/18 08:34 01/27/18 08:34 Laboratory Tests 01/20/18 01/27/18 01/27/18 16:44 08:34 08:34 WBC 14.7 H D Hgb 11.8 Hct 35.8 Sodium 137 Potassium 3.4 L Chloride 107 Carbon Dioxide 30 H BUN 8 Creatinine 0.55 L Serum , Qual Negative - Imaging EKG: report reviewed (SINUS TACHYCARDIA MODERATE INTRAVENTRICULAR CONDUCTION DELAY [110+ ms QRS DURATION] NONSPECIFIC ST & T-WAVE ABNORMALITY ABNORMAL RHYTHM ECG) Anesthesia Exam Vital Signs/O2 Sat, Most Current Temp Pulse Resp BP Pulse Ox 98.6 F 72 15 116/77 99 01/27/18 10:35 01/27/18 10:35 01/27/18 10:35 01/27/18 10:35 01/27/18 10:35 NPO (# of Hours): > 8 hrs Pain Scale: 0 Pain Scale Used: Numeric (1 - 10) - HEENT Pupil (Motor): Pupils equal, EOMI Mallampati: II Teeth: Normal Oral Opening: Greater than 3 - [employer] LOC: Oriented [employer] Motor: Normal RUE, Normal LUE, Normal RLE, Normal LLE, Normal Face [employer] Sensory: Normal: RUE, LUE, RLE, LLE, Face - Cardiac Rhythm: Regular Murmur: None JVD: No Carotid Bruit: No - Pulmonary Breath Sounds: bilateral Clear Anesthesia Assess/Plan ASA Score: 2 Modified Chemult Scale for Level of Consciousness: Cooperative, oriented, and tranquil Anesthetic Plan: General Autologous Blood: Yes Monitoring Plan: Standard Monitors Recovery Plan: PACU
--- NOTE | 2018-01-27 14:23 | Gastroenterology Consult Note ---
<Henrry Magaña - Last Filed: 01/27/18 14:21> Date of Encounter: 01/27/18 Time of Encounter: 11:25 - Assessment and plan (1) Choledocholithiasis Current Visit: Yes Status: Acute Assessment and plan: Intraoperative cholangiogram demonstrated multiple strictures on obstructing gallstone. Plan for ERCP today. Keep NPO. (2) Acute cholecystitis Current Visit: Yes Status: Acute Assessment and plan: Lap dewey completed 01/26. Management per surgical team. - Time Spent With Patient Total time spent is greater than 50% in coordination of care (as documented) at patient's floor/unit and/or counseling patient: GI History of Present Illness - Data of Consult Patient: new to practice Consult date: 01/27/18 Requesting Physician: Ady Gomez MD - Consult Narrative Reason for consult: Choledocholithiasis History of present illness: Ms. Rivera is a 17 year old female with PMHx of asthma who is 2 months with previous history of heroin use currently on Suboxone. She presented to the ED for RUQ pain. Ultrasound showed cholelithiasis and biliary sludge as well as pericholecystic fluid suggesting acute cholecystitis gallbladder wall is thickened. Pt underwent laparoscopic cholecystectomy on 01/26 and intraoperative cholangiogram demonstrated multiple strictures on obstructing gallstone. We have been consulted for ERCP. Procedures: None NSAIDs: Ibuprofen Anticoagulation: None Past Med Surg Social Fam HX - Past Medical History Medical history: asthma Psychiatric history: no psych history - Past Surgical History Surgical History: no surgical history - Social History Smoking Status: Current every day smoker Packs per day: 1/2 Smokeless Tobacco Status: No Alcohol use: none Drug use: none, opiates - Family History Father Adopted: No Living Status: Still Living Hx Family Cardiac Disorders: No Hx Family Respiratory Disorders: No Hx Family Cancer: No Hx Family GI Disorders: No Hx Family Endocrine Disorder: No Hx Family Neuromuscular Disorders: No Hx Family Neurologic Disorders: No Hx Family HEENT Disorders: No Hx Family Autoimmune Disorders: No Mother Adopted: [place]: Yanet Rivera Age: 37 Family Member Ethnicity: Non- Living Status: Still Living Hx Family Cardiac Disorders: Yes (HTN) Hx Family Respiratory Disorders: No Hx Family Cancer: No Hx Family GI Disorders: No Hx Family Endocrine Disorder: No Hx Family Neuromuscular Disorders: Yes (migraines) Hx Family Neurologic Disorders: No Hx Family HEENT Disorders: No Hx Family Autoimmune Disorders: No - Gastrointestinal Gastrointestinal: Present: as per HPI - Constitutional Constitutional: as per HPI - EENT Eyes: as per HPI Ears: Present: as per HPI Nose, mouth and throat: Present: as per HPI - Cardiovascular Cardiovascular ROS: Present: as per HPI - Respiratory Respiratory IM: Present: as per HPI - Genitourinary Genitourinary: Absent: change in color, Urinary frequency - Neurological ROS Neurological GI: Present: as per HPI - Hematologic/Lymphatic Hematologic/Lymphatic pediatric: Present: as per HPI - Musculoskeletal Musculoskeletal ROS GI: Present: as per HPI - Integumentary Integumentary GI: Present: as per HPI - Psychiatric ROS Psychiatric GI: Present: as per HPI - Endocrine Endocrine IM: Present: as per HPI - Constitutional Vitals: Temp Pulse Resp BP Pulse Ox 98.6 F 72 20 113/70 95 01/27/18 13:35 01/27/18 13:35 01/27/18 13:35 01/27/18 13:35 01/27/18 13:35 General appearance: Present: cooperative, A&O X 3, no acute distress, answers questions appropriately Exam: In pain - Head Head exam: Present: atraumatic, normocephalic - Eye Eye exam: Present: normal appearance, sclera anicteric - ENT ENT exam: Present: mucous membranes dry - Neck Neck exam general surgery: Present: normal inspection, trachea midline - Respiratory Respiratory exam: Present: CTAB. Absent: rales, rhonchi - Cardiovascular Cardiovascular exam: Present: RRR, +S1, +S2 - GI/Abdominal GI/Abdominal exam: Present: soft, tenderness (diffuse pain, most severe at epigastric area), no peritoneal signs. Absent: distended, firm, guarding Additional comments: Surgical scars noted - Rectal Rectal exam: Present: deferred - Extremities Exam Extremities exam: Present: warm - Neurological Exam Neurological exam: Present: no focal deficits - Psychiatric Psychiatric exam: Present: normal affect, normal mood - Skin Skin exam: Present: dry, intact, normal color, warm Results - Labs CBC & Chem 7: 01/27/18 08:34 01/27/18 08:34 Labs: Last Result Calcium 9.1 mg/dL (8.6-10.3) 01/27/18 08:34 Entire Visit Hgb 11.8 g/dL (11.5-15.4) 01/27/18 08:34 Hct 35.8 % (35.3-44.9) 01/27/18 08:34 Total Bilirubin 1.4 mg/dL (0.3-1.0) H 01/27/18 08:34 AST 117 Units/L (13-39) H 01/27/18 08:34 ALT 180 Units/L (7-52) H 01/27/18 08:34 Lipase 33 Units/L (11-82) 01/25/18 21:01 Consult Discharge Plan - Plan Referrals: NONE,PCP [Primary Care Provider] - <Rosanna Canela - Last Filed: 01/27/18 15:25> Date of Encounter: 01/27/18 Time of Encounter: 12:50 - Time Spent With Patient Total time spent is greater than 50% in coordination of care (as documented) at patient's floor/unit and/or counseling patient: GI History of Present Illness - Data of Consult Requesting Physician: Ady Gomez MD - Consult Narrative History of present illness: Ms. Rivera is a 17 year old female - Constitutional Vitals: Temp Pulse Resp BP Pulse Ox 98.3 F 61 14 124/85 100 01/27/18 15:14 01/27/18 15:14 01/27/18 15:14 01/27/18 15:14 01/27/18 15:14 Results - Labs CBC & Chem 7: 01/27/18 08:34 01/27/18 08:34 Labs: Last Result Calcium 9.1 mg/dL (8.6-10.3) 01/27/18 08:34 Entire Visit Hgb 11.8 g/dL (11.5-15.4) 01/27/18 08:34 Hct 35.8 % (35.3-44.9) 01/27/18 08:34 Total Bilirubin 1.4 mg/dL (0.3-1.0) H 01/27/18 08:34 AST 117 Units/L (13-39) H 01/27/18 08:34 ALT 180 Units/L (7-52) H 01/27/18 08:34 Lipase 33 Units/L (11-82) 01/25/18 21:01 - Impressions Impressions Cath/Invasive Procedure 01/27/18 00:00 IMPRESSION: Intraoperative fluoroscopy provided for ERCP. Please see the intraoperative note for complete details . D/ / Elliot Franklin MD / Elliot Franklin MD Interpreting Provider: Elliot Franklin MD - Attending Attestation I have personally performed a face to face evaluation on this patient. I have reviewed and agree with the care plan. History and Exam by me shows: Patient seen status post surgery still has significant abdominal pain and IOC showing distal CBD small stone. Recommendation: ERCP with sphincterotomy. Procedure including risks discussed with the patient specifically pancreatitis.
[2018-01-27] MEDS ORDERED: Indomethacin 50 MG SUPP.RECT RC ONE (14:50)
--- NOTE | 2018-01-27 15:10 | Anesthesia Evaluation Post Op ---
Date of Encounter: 01/27/18 Time of Encounter: 15:15 - Vital Signs Vital Signs: Vital Signs/O2 Sat/Glucose, Most Current Temp Pulse Resp BP Pulse Ox 01/27/18 15:05 58 16 123/82 100 01/27/18 14:55 64 16 116/83 100 01/27/18 14:45 98.0 F 88 16 113/73 100 01/27/18 13:35 98.6 F 72 20 113/70 95 - Lungs Lungs: Clear Ascult./Percussion - Airway Airway: Non-obstructed - Cardiovascular Regular Rate - Mental Status Mental Status: Alert & Oriented, Answers Appropriately - Pain Pain Scale: 0 - Nausea Vomiting Nausea Vomiting: Not Present - Hydration Hydration: Ice chips - Discharge PostOp Status: Transfer Patient to floor
[2018-01-28] MEDS: *HR* OxyCODONE/APAP 10/325 TABLET PO PRN ×4 (00:46→20:03)
[2018-01-28] MEDS: cefOXitin 2,000 MG in Water for inj. (sterile) 20 ML 20 ML IVPB SCH ×4 (00:47→23:59)
[2018-01-28] MEDS: 0.9 % Sodium Chloride 1,000 ML IVC SCH ×2 (01:12→11:42)
[2018-01-28 04:54] LABS: Hematocrit 27.4 % (35.3-44.9); Immature Granulocytes % 0.7 % (0-4); Lymphocytes % 8.1 %; Mean Corpuscular HGB Conc 32.8 g/dL (31.6-35.5); Mean Corpuscular Volume 94.5 fL (83.0-100.0); Mean Platelet Volume 11.4 fL (9.4-12.4); Monocytes % 7.8 %; Platelet Count 253 K/mcL (140-400); Red Cell Distribution Width 14.4 % (11.5-14.5); Segmented Neutrophils % 83.3 %
[2018-01-28 04:55] LABS: Alanine Aminotransferase 309 Units/L (7-52); Albumin 3.5 g/dL (3.5-5.7); Albumin/Globulin Ratio 1.4 (1.1-2.2); Alkaline Phosphatase 161 Units/L (34-104); Amylase 436 Units/L (29-103); Aspartate Amino Transferase 269 Units/L (13-39); BUN/Creatinine Ratio 14 (6-26); Basophils % 0.1 %; Bilirubin,Direct 0.5 mg/dL (0.0-0.2); Bilirubin,Indirect 0.6 mg/dL (0.0-1.2); Bilirubin,Total 1.1 mg/dL (0.3-1.0); Blood Urea Nitrogen 9 mg/dL (6-20); Calcium 8.4 mg/dL (8.6-10.3); Carbon Dioxide 25 mEq/L (23-29); Chloride 107 mEq/L (98-107); Globulin 2.5 g/dL (2.4-3.5); Glucose 113 mg/dL (70-105); Lipase 519 Units/L (11-82); Lymphocytes # 1.2 K/mcL (0.6-4.6); Monocytes # 1.1 K/mcL (0.0-1.3); Neutrophils # 11.8 K/mcL (1.6-8.9); Osmolality,Calculated 283 (280-300); Potassium 4.2 mEq/L (3.5-5.1); Sodium 137 mEq/L (136-145); eGFR For African Americans > 60; eGFR For Non-African Americans > 60
[2018-01-28] MEDS ORDERED: Ketorolac 30 MG/ML VIAL IVP PRN (08:35)
--- NOTE | 2018-01-28 11:23 | Gastroenterology Progress Note ---
<GómezHenrry Jese - Last Filed: 01/28/18 11:21> Date of Encounter: 01/28/18 Time of Encounter: 10:40 - Assessment and plan (1) Choledocholithiasis Current Visit: Yes Status: Acute Assessment and plan: ERCP with sludge noted, stent placed. Repeat EGD in 2 months for stent removal. AST and ALT increased to 269 and 309 from 117 and 180. Lipase elevated to 519. Start IV fluids at 150 ml/hr. Continue to monitor hepatic panel. (2) Acute cholecystitis Current Visit: Yes Status: Acute Assessment and plan: Lap dewey completed 01/26. Management per surgical team. - Time Spent With Patient Total time spent is greater than 50% in coordination of care (as documented) at patient's floor/unit and/or counseling patient: - Subjective Interval history: Patient is sitting in bed and is feeling well today. She states her abdominal pain is significantly improved. She has tolerated PO intake without nausea or vomiting. - Constitutional Vitals: Temp Pulse Resp BP Pulse Ox 98.0 F 95 16 99/64 100 01/28/18 10:25 01/28/18 10:25 01/28/18 10:25 01/28/18 10:25 01/28/18 10:25 General appearance: Present: cooperative, A&O X 3, no acute distress, answers questions appropriately - Head Head exam: Present: atraumatic, normocephalic - Eye Eye exam: Present: normal appearance, sclera anicteric - ENT ENT exam: Present: mucous membranes moist - Neck Neck exam general surgery: Present: normal inspection, trachea midline - Respiratory Respiratory exam: Present: CTAB. Absent: rales, rhonchi - Cardiovascular Cardiovascular exam: Present: RRR, +S1, +S2 - GI/Abdominal GI/Abdominal exam: Present: soft, tenderness (Mild postsurgical tenderness, improved from yesterday), no peritoneal signs. Absent: distended, firm, guarding Additional comments: Surgical scars - Rectal Rectal exam: Present: deferred - Extremities Exam Extremities exam: Present: warm - Neurological Exam Neurological exam: Present: no focal deficits - Psychiatric Psychiatric exam: Present: normal affect, normal mood - Skin Skin exam: Present: dry, intact, normal color, warm Results - Labs CBC & Chem 7: 01/28/18 04:03 01/28/18 04:03 Labs: Last Result Calcium 8.4 mg/dL (8.6-10.3) L 01/28/18 04:03 Entire Visit Hgb 9.0 g/dL (11.5-15.4) L D 01/28/18 04:03 Hct 27.4 % (35.3-44.9) L 01/28/18 04:03 Total Bilirubin 1.1 mg/dL (0.3-1.0) H 01/28/18 04:03 AST 269 Units/L (13-39) H 01/28/18 04:03 ALT 309 Units/L (7-52) H 01/28/18 04:03 Amylase 436 Units/L (29-103) H 01/28/18 04:03 Lipase 519 Units/L (11-82) H 01/28/18 04:03 - Impressions Impressions Cath/Invasive Procedure 01/27/18 00:00 IMPRESSION: Intraoperative fluoroscopy provided for ERCP. Please see the intraoperative note for complete details . D/ / Elliot Franklin MD / Elliot Franklin MD Interpreting Provider: Elliot Franklin MD - VTE Documentation of Mechanical Device: Intermittent pneumatic compression device Consult Discharge Plan - Plan Referrals: NONE,PCP [Primary Care Provider] - <RolaKatieRosanna - Last Filed: 01/28/18 12:18> Date of Encounter: 01/28/18 Time of Encounter: 12:00 - Time Spent With Patient Total time spent is greater than 50% in coordination of care (as documented) at patient's floor/unit and/or counseling patient: - Constitutional Vitals: Temp Pulse Resp BP Pulse Ox 98.0 F 95 16 99/64 100 01/28/18 10:25 01/28/18 10:25 01/28/18 10:25 01/28/18 10:25 01/28/18 10:25 Results - Labs CBC & Chem 7: 01/28/18 11:57 01/28/18 04:03 Labs: Last Result Calcium 8.4 mg/dL (8.6-10.3) L 01/28/18 04:03 Entire Visit Hgb 7.5 g/dL (11.5-15.4) L D 01/28/18 11:57 Hct 22.5 % (35.3-44.9) L 01/28/18 11:57 Total Bilirubin 1.1 mg/dL (0.3-1.0) H 01/28/18 04:03 AST 269 Units/L (13-39) H 01/28/18 04:03 ALT 309 Units/L (7-52) H 01/28/18 04:03 Amylase 436 Units/L (29-103) H 01/28/18 04:03 Lipase 519 Units/L (11-82) H 01/28/18 04:03 - Impressions Impressions Cath/Invasive Procedure 01/27/18 00:00 IMPRESSION: Intraoperative fluoroscopy provided for ERCP. Please see the intraoperative note for complete details . D/ / Elliot Franklin MD / Elliot Franklin MD Interpreting Provider: Elliot Franklin MD - Attending Attestation I have personally performed a face to face evaluation on this patient. I have reviewed and agree with the care plan. History and Exam by me shows: Patient seen. Had an ERCP done yesterday with removal of the sludge and placement of CBD stent. Per patient abdominal pain today is much better than before. Still requiring pain medication. Does has mild post-ERCP pancreatitis. Recommendation: IV fluid pain control.
[2018-01-28 12:06] LABS: Hematocrit 22.5 % (35.3-44.9); Hemoglobin 7.5 g/dL (11.5-15.4)
[2018-01-28 12:37] LABS: Amylase 410 Units/L (29-103); Lipase 544 Units/L (11-82)
[2018-01-28] MEDS ORDERED: Isovue-370 500 ML INFUS..BTL IV ONE (13:22)
--- NOTE | 2018-01-28 13:24 | General Surgery Progress Note ---
Addendum entered and electronically signed by Gregor Avila DO 01/28/18 16:53 : Patient's CT abd showed: "Large subcapsular hematoma within the liver measuring 10.2 x 19.4 cm on coronal imaging. The hematoma has mixed attenuation. There is compression of the hepatic parenchyma. Several poorly defined indeterminate areas of decreased attenuation are present within the hepatic parenchyma. A biliary stent is in place with no significant biliary dilatation. Post cholecystectomy clips in the gallbladder fossa. The spleen, and adrenal glands are unremarkable. Mild edematous changes are suggested throughout the pancreas. No focal pancreatic or peripancreatic fluid collection. " Q6H H/H Transfuse if indicated Serial abdominal exams continue to monitor closely Original Note: <Gregor Avila - Last Filed: 01/28/18 14:12> Date of Encounter: 01/28/18 Time of Encounter: 07:30 - Assessment and Plan (1) Acute cholecystitis Current Visit: Yes Status: Acute Pt is POD #2 s/p Lap choly Patient's intraopperative cholangiogram demonstrated multiple strictures and obstructing gallstone. GI performed an ERCP yesterday and placed a stent. This morning patient's Hgb dropped from 11.8 to 9.0 and on repeat to 7.5 Patient had elevation in her Amylase and Lipase this morning and an increasing Lipase this afternoon. Type and Cross ordered CT abd/pelvis ordered to evaluate for possible post procedure pancreatitis and concern for possible bleed. IV fluids started. Gave patient standing NSAID with toradol for breakthrough pain. (2) Anemia Current Visit: Yes Status: Acute See Plan above Qualifiers: Anemia type: other cause Other causes of anemia: other cause, not classified Qualified Code(s): D64.89 - Other specified anemias (3) Elevated amylase and lipase Current Visit: Yes Status: Acute See Plan above Subjective Patient reports: feels better, still having pain, voiding w/o difficulty, flatus , bowel movement, afebrile Narrative: Ms. 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 Patient reports improvement in her pain today and states Toradol has helped her the most. She has passed bowel movement and flatus. Patient denies F, N, V, D. Objective Vital Signs - Last 8 Hours Temp Pulse Resp BP Pulse Ox 01/28/18 10:25 98.0 F 95 16 99/64 100 01/28/18 06:37 97.7 F 108 16 106/68 98 Intake and Output 01/27/18 01/28/18 01/28/18 23:59 07:59 15:59 Intake Total 1320 / 1320 120 / 120 620 / 620 Output Total 1500 / 1500 400 / 400 100 / 100 Balance -180 / -180 -280 / -280 520 / 520 Intake: IV Fluids 1020 / 1020 0.9 % Sodium Chloride 1,000 ML 1000 / 1000 @ 75 mls/hr IVC .[id number] [facility] Rx #:[id number] Mefoxin 2,000 MG In Water for inj. (sterile) 20 ML @ 300 mls/ hr IVPB Q8HR [facility] Rx#:[id number] Oral 300 / 300 120 / 120 600 / 600 Output: Urine 1500 / 1500 400 / 400 100 / 100 Other: Meal Dinner Clear Percent of Meal Consumed 25% # Bowel Movements 0 - General physical appearance well developed, well nourished, no distress - Respiratory normal expansion, normal respiratory effort, clear to auscultation - Cardiovascular Cardiovascular exam: Present: RRR - Abdomen Abdomen: Present: bowel sounds present, soft, tender (mild) Abdominal Tenderness: diffusely - Incision Incision: Present: clean and dry, intact - Neurologic normal coordination, normal sensation - Psychiatric oriented to time, oriented to person, oriented to place, speech is normal, memory intact - Labs 01/28/18 11:57 01/28/18 04:03 Diabetes panel 01/28/18 Range/Units 04:03 Sodium 137 (136-145) mEq/L Potassium 4.2 (3.5-5.1) mEq/L Chloride 107 (98-107) mEq/L Carbon Dioxide 25 (23-29) mEq/L BUN 9 (6-20) mg/dL Creatinine 0.63 (0.60-1.20) mg/dL Glucose 113 H (70-105) mg/dL Calcium 8.4 L (8.6-10.3) mg/dL AST 269 H (13-39) Units/L ALT 309 H (7-52) Units/L Alkaline Phosphatase 161 H (34-104) Units/L Albumin 3.5 (3.5-5.7) g/dL Calcium panel 01/28/18 Range/Units 04:03 Calcium 8.4 L (8.6-10.3) mg/dL Albumin 3.5 (3.5-5.7) g/dL Pituitary panel 01/28/18 Range/Units 04:03 Sodium 137 (136-145) mEq/L Potassium 4.2 (3.5-5.1) mEq/L Chloride 107 (98-107) mEq/L Carbon Dioxide 25 (23-29) mEq/L BUN 9 (6-20) mg/dL Creatinine 0.63 (0.60-1.20) mg/dL Glucose 113 H (70-105) mg/dL Calcium 8.4 L (8.6-10.3) mg/dL Adrenal panel 01/28/18 Range/Units 04:03 Sodium 137 (136-145) mEq/L Potassium 4.2 (3.5-5.1) mEq/L Chloride 107 (98-107) mEq/L Carbon Dioxide 25 (23-29) mEq/L BUN 9 (6-20) mg/dL Creatinine 0.63 (0.60-1.20) mg/dL Glucose 113 H (70-105) mg/dL Calcium 8.4 L (8.6-10.3) mg/dL Total Bilirubin 1.1 H (0.3-1.0) mg/dL AST 269 H (13-39) Units/L ALT 309 H (7-52) Units/L Alkaline Phosphatase 161 H (34-104) Units/L Albumin 3.5 (3.5-5.7) g/dL - VTE Documentation of Mechanical Device: Intermittent pneumatic compression device Consult Discharge Plan - Plan Referrals: NONE,PCP [Primary Care Provider] - <Ady Gomez - Last Filed: 01/28/18 17:13> Date of Encounter: 01/28/18 - Assessment and Plan (1) Acute cholecystitis Current Visit: Yes Status: Acute Objective Vital Signs - Last 8 Hours Temp Pulse Resp BP Pulse Ox 01/28/18 13:56 98.7 F 107 16 105/72 98 01/28/18 10:25 98.0 F 95 16 99/64 100 Intake and Output 01/28/18 01/28/18 01/28/18 07:59 15:59 23:59 Intake Total 120 / 120 740 / 740 Output Total 400 / 400 100 / 100 Balance -280 / -280 640 / 640 Intake: IV Fluids Mefoxin 2,000 MG In Water for inj. (sterile) 20 ML @ 300 mls/ hr IVPB Q8HR [facility] Rx#:[id number] Oral 120 / 120 720 / 720 Output: Urine 400 / 400 100 / 100 Other: Meal Lunch Percent of Meal Consumed 5% # Bowel Movements 0 - Labs 01/28/18 11:57 01/28/18 04:03 Diabetes panel 01/28/18 Range/Units 04:03 Sodium 137 (136-145) mEq/L Potassium 4.2 (3.5-5.1) mEq/L Chloride 107 (98-107) mEq/L Carbon Dioxide 25 (23-29) mEq/L BUN 9 (6-20) mg/dL Creatinine 0.63 (0.60-1.20) mg/dL Glucose 113 H (70-105) mg/dL Calcium 8.4 L (8.6-10.3) mg/dL AST 269 H (13-39) Units/L ALT 309 H (7-52) Units/L Alkaline Phosphatase 161 H (34-104) Units/L Albumin 3.5 (3.5-5.7) g/dL Calcium panel 01/28/18 Range/Units 04:03 Calcium 8.4 L (8.6-10.3) mg/dL Albumin 3.5 (3.5-5.7) g/dL Pituitary panel 01/28/18 Range/Units 04:03 Sodium 137 (136-145) mEq/L Potassium 4.2 (3.5-5.1) mEq/L Chloride 107 (98-107) mEq/L Carbon Dioxide 25 (23-29) mEq/L BUN 9 (6-20) mg/dL Creatinine 0.63 (0.60-1.20) mg/dL Glucose 113 H (70-105) mg/dL Calcium 8.4 L (8.6-10.3) mg/dL Adrenal panel 01/28/18 Range/Units 04:03 Sodium 137 (136-145) mEq/L Potassium 4.2 (3.5-5.1) mEq/L Chloride 107 (98-107) mEq/L Carbon Dioxide 25 (23-29) mEq/L BUN 9 (6-20) mg/dL Creatinine 0.63 (0.60-1.20) mg/dL Glucose 113 H (70-105) mg/dL Calcium 8.4 L (8.6-10.3) mg/dL Total Bilirubin 1.1 H (0.3-1.0) mg/dL AST 269 H (13-39) Units/L ALT 309 H (7-52) Units/L Alkaline Phosphatase 161 H (34-104) Units/L Albumin 3.5 (3.5-5.7) g/dL - Attending Attestation I examined this patient and my medical decision-making was reviewed with the Resident Physician. I agree with the documented findings, disposition and treatment plan as described except to the extent set forth below. The patient is seen and evaluated on morning rounds with resident. She had several episodes of tachycardia as well as a drop in her hemoglobin on 2 separate measurements. CAT scan of the abdomen is ordered. Later in the day the CAT scan demonstrated a subcapsular hematoma. I am quite concerned that the subcutaneous capsule hematoma was secondary to ERCP wire and instrumentation. The liver looked absolutely normal at the end of laparoscopic cholecystectomy. Certainly the etiology of the hematoma cannot be determined. The patient will be held in the hospital until clinically stable. Type and screen is performed. I do not think that transfusion is indicated at this point however, transfusion will be initiated if the patient shows any level of instability. Ady Gomez MD FACS
--- NOTE | 2018-01-28 17:18 | Event Note ---
<Jossy Kowalski - Last Filed: 01/28/18 17:12> Date of Encounter: 01/28/18 Time of Encounter: 17:[address] (detailed below) with resident physician (Dr. Avila) and Dr. Gomez. Pt with subcapsular hematoma measuring approximately 10 cm x 20 cm (per Dr. Franklin, radiologist), free fluid in the abdomen, and "they areas in the liver ,). Dr. Waggoner, radiologist also notes that he is unable to tell if the patient is actively bleeding as CTA was not performed (has not previously indicated). Currently patient's vital signs are stable, heart rate is 93 (per this [employer]), last blood pressure 105/72 at approximately 1350 6 PM. Patient states soreness in the right upper quadrant. Given patient's illicit drug use, this [employer] did review with patient her past drug use and specifically questioned the use of synthetic cannabinoids. Patient denies use of synthetic cannabinoids. Reinforced with the patient the need for transparency with her illicit drug use given that many illicit drugs including synthetic cannabinoids can lead to coagulopathy's. We will continue to closely monitor the patient. Q6H H&H, transfuse as indicated (patient is agreeable to transfusion of blood products if needed), check PT and INR as well as a PTT, consideration for VitK if indicated, repeat a.m. labs, serial abdominal exams. May continue full liquid diet. Please place second IV line. CT/CT abd pelvis w iv and oral IMPRESSION: 1. Large subcapsular hematoma around the liver. It is difficult to evaluate for active arterial bleeding due to the lack of CTA technique. Poorly defined low-attenuation hepatic lesions peripherally near the hematoma. 2. Moderate amount of free fluid, simple in attenuation, greatest in the right pericolic gutter and pelvis. Moderate infiltration of the fat throughout the retroperitoneum and mesentery in the upper abdomen. Free intraperitoneal air, presumably postoperative. 3. Small bilateral effusions with mild dependent bibasilar atelectasis. Critical results were called by Dr. Elliot Franklin MD to Jossy Kowalski NP on 01/28/2018 at 16:40. <Ady Gomez - Last Filed: 01/28/18 18:50> Date of Encounter: 01/28/18 The patient is seen and evaluated. The patient has developed a subcapsular hematoma after her ERCP. Photographic documentation at the end of laparoscopic cholecystectomy demonstrated no evidence of bleeding. Etiology of subcapsular hematoma unknown. We will observe the patient carefully for any signs of further hemorrhage in transfuse if necessary. She may require arterial embolization if bleeding continues. Ady Gomez MD FACS
[2018-01-28 17:45] LABS: Hematocrit 20.7 % (35.3-44.9); Hemoglobin 6.7 g/dL (11.5-15.4)
[2018-01-28 17:51] LABS: INR 1.2
[2018-01-28 17:53] LABS: Activated Partial Thrombo Time 29.3 Seconds (26.0-36.0)
[2018-01-28] MEDS: Acetaminophen IV 1,000 MG/100 ML INFUS..BTL IVPB SCH ×2 (18:03→23:39)
[2018-01-29 00:50] LABS: Hematocrit 20.2 % (35.3-44.9); Hemoglobin 6.6 g/dL (11.5-15.4)
[2018-01-29] MEDS: *HR* OxyCODONE/APAP 10/325 TABLET PO PRN ×5 (02:42→20:20)
[2018-01-29] MEDS: Acetaminophen IV 1,000 MG/100 ML INFUS..BTL IVPB SCH ×4 (05:09→17:08)
[2018-01-29 05:33] LABS: Basophils % 0.2 %; Eosinophils # 0.1 K/mcL (0.0-0.6); Eosinophils % 0.9 %; Hematocrit 21.6 % (35.3-44.9); Hemoglobin 7.1 g/dL (11.5-15.4); Immature Granulocytes % 2.5 % (0-4); Lymphocytes # 1.8 K/mcL (0.6-4.6); Mean Corpuscular HGB Conc 32.9 g/dL (31.6-35.5); Mean Corpuscular Hemoglobin 31.3 pg (28.0-33.3); Mean Corpuscular Volume 95.2 fL (83.0-100.0); Mean Platelet Volume 12.2 fL (9.4-12.4); Monocytes % 11.3 %; Neutrophils # 5.8 K/mcL (1.6-8.9); Nucleated Red Blood Cells 0.2 /100 WBC (0); Platelet Count 146 K/mcL (140-400); Red Blood Count 2.27 M/mcL (3.82-4.97); Red Cell Distribution Width 14.7 % (11.5-14.5); Segmented Neutrophils % 65.1 %
[2018-01-29] MEDS: 0.9 % Sodium Chloride 1,000 ML IVC SCH ×2 (05:34→13:55)
[2018-01-29 06:40] LABS: Hematocrit 19.3 % (35.3-44.9); Hemoglobin 6.4 g/dL (11.5-15.4)
[2018-01-29 07:40] LABS: Alanine Aminotransferase > 500 Units/L (7-52); Albumin/Globulin Ratio 1.3 (1.1-2.2); Alkaline Phosphatase 148 Units/L (34-104); Aspartate Amino Transferase 428 Units/L (13-39); Bilirubin,Direct 0.4 mg/dL (0.0-0.2); Bilirubin,Indirect 0.3 mg/dL (0.0-1.2); Bilirubin,Total 0.7 mg/dL (0.3-1.0); Globulin 2.3 g/dL (2.4-3.5); Lipase 159 Units/L (11-82); Total Protein 5.3 g/dL (6.4-8.9)
[2018-01-29] MEDS: cefOXitin 2,000 MG in Water for inj. (sterile) 20 ML 20 ML IVPB SCH ×2 (08:14→16:18)
--- NOTE | 2018-01-29 08:24 | General Surgery Progress Note ---
Date of Encounter: 01/29/18 Time of Encounter: 08:24 - Assessment and Plan (1) Acute cholecystitis Current Visit: Yes Status: Acute Pt is POD #3 s/p Lap choly Patient's intraopperative cholangiogram demonstrated multiple strictures and obstructing gallstone. GI performed an ERCP and placed a stent 01/28/18. Yesterday patient's Hgb dropped from 11.8 to 9.0 and on repeat to 7.5 Patient had elevation in her Amylase and Lipase this morning and an increasing Lipase this afternoon. Type and Cross ordered CT abd/pelvis showed "Large subcapsular hematoma within the liver measuring 10.2 x 19.4 cm on coronal imaging. The hematoma has mixed attenuation. There is compression of the hepatic parenchyma. Several poorly defined indeterminate areas of decreased attenuation are present within the hepatic parenchyma. A biliary stent is in place with no significant biliary dilatation. Post cholecystectomy clips in the gallbladder fossa. The spleen, and adrenal glands are unremarkable. Mild edematous changes are suggested throughout the pancreas. No focal pancreatic or peripancreatic fluid collection. " IV fluids started. Stopped standing NSAID and toradol for breakthrough pain due to bleeding risk. Transfusing 2 units of PRBC will check H/H after transfusion. Started fentanyl patch for pain control and increased percocet to Q4H continue Serial abdominal exams continue to monitor closely (2) Acute blood loss anemia Current Visit: Yes Status: Acute See above for plan. (3) Subcapsular hematoma of liver Current Visit: Yes Status: Acute Likely secondary to ERCP. See Acute cholecystitis for plan (4) Elevated amylase and lipase Current Visit: Yes Status: Acute See Plan above (5) Restless leg syndrome Current Visit: Yes Status: Acute Started patient on Gabapentin for RLS Liely will improve with transfusion as well an iron deficiency is a major cause of RLS. Anemia likely exacerbating her underlying RLS. Subjective Patient reports: still having pain, tolerating liquids well, voiding w/o difficulty, flatus, bowel movement, afebrile Narrative: Patient seen and examined by e at bedside. Patient's Hgb continued to drop over night. Patient reports increased pain in her RUQ. Patient reports distention of belly. Patient reports nursing is consistently late with her pain medication. patient's CT abd yesterday showed large subcapsular liver hematoma. Objective Vital Signs - Last 8 Hours Temp Pulse Resp BP Pulse Ox 01/29/18 06:50 99.1 F 115 15 115/69 97 01/29/18 03:56 99.4 F 102 19 126/76 99 01/29/18 01:16 98.2 F 110 18 108/65 98 Intake and Output 01/28/18 01/29/18 01/29/18 23:59 07:59 15:59 Intake Total 1360 / 1360 140 / 140 Output Total 800 / 800 500 / 500 Balance 560 / 560 -360 / -360 Intake: IV Fluids 1120 / 1120 120 / 120 0.9 % Sodium Chloride 1,000 ML 1000 / 1000 @ 150 mls/hr IVC .[id number] [facility] Rx #:[id number] Ofirmev 1,000 mg/100 ml 1,000 100 / 100 100 / 100 mg In 100 ml @ 400 mls/hr IVPB Q6H [facility] Rx#:[id number] Mefoxin 2,000 MG In Water for 20 / 20 20 / 20 inj. (sterile) 20 ML @ 300 mls/ hr IVPB Q8HR [facility] Rx#:[id number] Oral 240 / 240 20 / 20 Output: Urine 800 / 800 500 / 500 Other: Meal Dinner Percent of Meal Consumed 10% Weight 69.672 kg Patient Weight 01/29/18 23:59 Weight 69.672 kg - General physical appearance well developed, well nourished, moderate pain - Respiratory normal expansion, normal respiratory effort, clear to auscultation - Cardiovascular Cardiovascular exam: Present: tachycardia, regular rhythm, no murmurs/rubs/ gallops - Abdomen Abdomen: Present: bowel sounds present, distended, tender, surgical scars Abdominal Tenderness: RUQ - Integumentary no rash, no abnormal pigmentation - Neurologic normal coordination, normal sensation - Psychiatric oriented to time, oriented to person, oriented to place, speech is normal, memory intact - Labs 01/29/18 06:07 01/28/18 04:03 Diabetes panel 01/29/18 Range/Units 06:07 AST 428 H (13-39) Units/L ALT > 500 H (7-52) Units/L Alkaline Phosphatase 148 H (34-104) Units/L Albumin 3.0 L (3.5-5.7) g/dL Calcium panel 01/29/18 Range/Units 06:07 Albumin 3.0 L (3.5-5.7) g/dL Adrenal panel 01/29/18 Range/Units 06:07 Total Bilirubin 0.7 (0.3-1.0) mg/dL AST 428 H (13-39) Units/L ALT > 500 H (7-52) Units/L Alkaline Phosphatase 148 H (34-104) Units/L Albumin 3.0 L (3.5-5.7) g/dL - Imaging CT scan - abdomen: report reviewed, image reviewed - VTE Documentation of Mechanical Device: Graduated compression elastic hosiery Consult Discharge Plan - Plan Referrals: Abeba Cuellar [employer] [Advanced Practice Nurse] - 02/10/18 1:15 pm
[2018-01-29] MEDS ORDERED: 0.9 % Sodium Chloride 250 ML ONE ×2 (08:39→11:52)
[2018-01-29] MEDS: Gabapentin 300 MG CAPSULE PO SCH ×2 (10:13→20:21)
[2018-01-29] MEDS ORDERED: *HR* FentaNYL PATCH 25 MCG PATCH TD SCH (10:15)
[2018-01-29] MEDS ORDERED: *HR* OxyCODONE/APAP 10/325 TABLET PO SCH (12:00)
--- NOTE | 2018-01-29 12:14 | Gastroenterology Progress Note ---
<Henrry Magaña Jese - Last Filed: 01/29/18 12:10> Date of Encounter: 01/29/18 Time of Encounter: 11:55 - Assessment and plan (1) Anemia Current Visit: Yes Status: Acute Assessment and plan: Hgb 12.3 on admission has dropped to 6.4. CT A/P with large subcapsular hematoma around the liver measuring approximately 10 cm x 20 cm. It is difficult to evaluate for active arterial bleeding due to the lack of CTA technique. Poorly defined low-attenuation hepatic lesions peripherally near the hematoma. Continue to monitor CBC and transfuse PRBC as needed. Dr. Canela to review CT A/P and make recommendations. Qualifiers: Anemia type: other cause Other causes of anemia: other cause, not classified Qualified Code(s): D64.89 - Other specified anemias (2) Choledocholithiasis Current Visit: Yes Status: Acute Assessment and plan: ERCP with sludge noted, stent placed. Repeat EGD in 2 months for stent removal. AST and ALT continue to increase to 428 and >500 from 269 and 309. Lipase improved to 159 from 519. Continue IV fluids. Continue to monitor hepatic panel. (3) Acute cholecystitis Current Visit: Yes Status: Acute Assessment and plan: Lap dewey completed 01/26. Management per surgical team. - Time Spent With Patient Total time spent is greater than 50% in coordination of care (as documented) at patient's floor/unit and/or counseling patient: - Subjective Interval history: Patient is resting in bed and complains of worsening RUQ pain. Hgb continue to drop and was 6.4 this AM. She denies any melena or hematochezia. - Constitutional Vitals: Temp Pulse Resp BP Pulse Ox 98.9 F 102 16 108/72 97 01/29/18 11:45 01/29/18 11:45 01/29/18 11:45 01/29/18 11:45 01/29/18 09:20 General appearance: Present: cooperative, A&O X 3, no acute distress, answers questions appropriately - Head Head exam: Present: atraumatic, normocephalic - Eye Eye exam: Present: normal appearance, sclera anicteric - ENT ENT exam: Present: mucous membranes dry - Neck Neck exam general surgery: Present: normal inspection, trachea midline - Respiratory Respiratory exam: Present: CTAB. Absent: rales, rhonchi - Cardiovascular Cardiovascular exam: Present: RRR, +S1, +S2 - GI/Abdominal GI/Abdominal exam: Present: normal bowel sounds, soft, tenderness (generalized) , no peritoneal signs. Absent: distended, firm, guarding Additional comments: Surgical scars - Rectal Rectal exam: Present: normal inspection Additional comments: Brown stool noted, no BRBPR or melena. - Extremities Exam Extremities exam: Present: warm - Neurological Exam Neurological exam: Present: no focal deficits - Psychiatric Psychiatric exam: Present: normal affect, normal mood - Skin Skin exam: Present: dry, intact, normal color, warm Results - Labs CBC & Chem 7: 01/29/18 06:07 01/28/18 04:03 Labs: Last Result Calcium 8.4 mg/dL (8.6-10.3) L 01/28/18 04:03 Entire Visit Hgb 6.4 g/dL (11.5-15.4) L 01/29/18 06:07 Hct 19.3 % (35.3-44.9) L 01/29/18 06:07 PT 13.0 Seconds (9.4-12.1) H 01/28/18 17:25 Total Bilirubin 0.7 mg/dL (0.3-1.0) 01/29/18 06:07 AST 428 Units/L (13-39) H 01/29/18 06:07 ALT > 500 Units/L (7-52) H 01/29/18 06:07 Amylase 410 Units/L (29-103) H 01/28/18 11:57 Lipase 159 Units/L (11-82) H 01/29/18 06:07 - ABG ABG results: PT/INR, D-dimer PT 13.0 Seconds (9.4-12.1) H 01/28/18 17:25 - Impressions Impressions Abdomen/Pelvis CT 01/28/18 15:45 IMPRESSION: 1. Large subcapsular hematoma around the liver. It is difficult to evaluate for active arterial bleeding due to the lack of CTA technique. Poorly defined low-attenuation hepatic lesions peripherally near the hematoma. 2. Moderate amount of free fluid, simple in attenuation, greatest in the right pericolic gutter and pelvis. Moderate infiltration of the fat throughout the retroperitoneum and mesentery in the upper abdomen. Free intraperitoneal air, presumably postoperative. 3. Small bilateral effusions with mild dependent bibasilar atelectasis. Critical results were called by Dr. Elliot Franklin MD to Jossy Kowalski NP on 01/28/2018 at 16:40. D/ / 01/28/2018 16:47:29 Elliot Franklin MD / jason Interpreting Provider: Elliot Franklin MD - VTE Documentation of Mechanical Device: Graduated compression elastic hosiery Consult Discharge Plan - Plan Referrals: Abeba Cuellar EVENT REPRESENTATIVE [Advanced Practice Nurse] - 02/10/18 1:15 pm <Rosanna Canela - Last Filed: 01/29/18 17:42> Date of Encounter: 01/29/18 - Time Spent With Patient Total time spent is greater than 50% in coordination of care (as documented) at patient's floor/unit and/or counseling patient: - Constitutional Vitals: Temp Pulse Resp BP Pulse Ox 98.0 F 80 16 109/74 98 01/29/18 15:16 01/29/18 15:16 01/29/18 15:16 01/29/18 15:16 01/29/18 15:16 Results - Labs CBC & Chem 7: 01/29/18 16:15 01/28/18 04:03 Labs: Last Result Calcium 8.4 mg/dL (8.6-10.3) L 01/28/18 04:03 Entire Visit Hgb 9.5 g/dL (11.5-15.4) L D 01/29/18 16:15 Hct 28.0 % (35.3-44.9) L 01/29/18 16:15 PT 13.0 Seconds (9.4-12.1) H 01/28/18 17:25 Total Bilirubin 0.7 mg/dL (0.3-1.0) 01/29/18 06:07 AST 428 Units/L (13-39) H 01/29/18 06:07 ALT > 500 Units/L (7-52) H 01/29/18 06:07 Amylase 410 Units/L (29-103) H 01/28/18 11:57 Lipase 159 Units/L (11-82) H 01/29/18 06:07 - ABG ABG results: PT/INR, D-dimer PT 13.0 Seconds (9.4-12.1) H 01/28/18 17:25 - Attending Attestation I have personally performed a face to face evaluation on this patient. I have reviewed and agree with the care plan. History and Exam by me shows: Patient seen. Patient status post color surgery and subsequent ERCP for a CBD stone with stent placement. Post ERCP in the last 2 days patient has significant drop in her hemoglobin with a large subcapsular hematoma. No bleeding per rectum. Has been getting transfusion. Reviewed the CAT scan with IR. At this point the bleeding seemed to have stopped as patient hemoglobin has been relatively stable. Hemodynamically she is stable and pain-cortez she is doing better. Recommendation: If continued to have a drop in her hemoglobin then we will recommend IR angiogram with possible embolization of the bleeding spot. We will start empirically on antibiotic to prevent infection of the hematoma.
[2018-01-29] MEDS: Piperacillin/Tazobactam 3.375 GM in 0.9 % Sodium Chloride Mini Bag 100 ML IVPB SCH ×2 (13:55→20:21)
[2018-01-29 17:04] LABS: Hemoglobin 9.5 g/dL (11.5-15.4)
[2018-01-30] MEDS: Acetaminophen IV 1,000 MG/100 ML INFUS..BTL IVPB SCH ×5 (00:14→23:43)
[2018-01-30] MEDS: *HR* OxyCODONE/APAP 10/325 TABLET PO PRN ×6 (00:15→21:45)
[2018-01-30] MEDS: cefOXitin 2,000 MG in Water for inj. (sterile) 20 ML 20 ML IVPB SCH ×4 (00:15→23:47)
[2018-01-30] MEDS: 0.9 % Sodium Chloride 1,000 ML IVC SCH ×2 (00:44→09:29)
[2018-01-30] MEDS: Piperacillin/Tazobactam 3.375 GM in 0.9 % Sodium Chloride Mini Bag 100 ML IVPB SCH ×3 (04:23→20:48)
[2018-01-30 06:21] LABS: Basophils % 0.2 %; Eosinophils # 0.1 K/mcL (0.0-0.6); Eosinophils % 1.5 %; Hemoglobin 8.9 g/dL (11.5-15.4); Immature Granulocytes % 0.7 % (0-4); Lymphocytes # 1.3 K/mcL (0.6-4.6); Lymphocytes % 15.1 %; Mean Corpuscular HGB Conc 34.2 g/dL (31.6-35.5); Mean Corpuscular Hemoglobin 31.2 pg (28.0-33.3); Mean Corpuscular Volume 91.2 fL (83.0-100.0); Mean Platelet Volume 11.5 fL (9.4-12.4); Monocytes # 0.9 K/mcL (0.0-1.3); Monocytes % 9.8 %; Neutrophils # 6.4 K/mcL (1.6-8.9); Platelet Count 175 K/mcL (140-400); Red Blood Count 2.85 M/mcL (3.82-4.97); Red Cell Distribution Width 15.1 % (11.5-14.5); Segmented Neutrophils % 72.7 %
[2018-01-30 06:35] LABS: Albumin 2.9 g/dL (3.5-5.7); Albumin/Globulin Ratio 1.3 (1.1-2.2); Bilirubin,Direct 0.3 mg/dL (0.0-0.2); Bilirubin,Indirect 0.5 mg/dL (0.0-1.2); Bilirubin,Total 0.8 mg/dL (0.3-1.0); Globulin 2.3 g/dL (2.4-3.5); Total Protein 5.2 g/dL (6.4-8.9)
--- NOTE | 2018-01-30 06:44 | General Surgery Progress Note ---
<ClaudiamauricioGregor - Last Filed: 01/30/18 16:14> Date of Encounter: 01/30/18 Time of Encounter: 06:30 - Assessment and Plan (1) Acute cholecystitis Status: Acute Pt is POD #4 s/p Lap choly Patient's intraopperative cholangiogram demonstrated multiple strictures and obstructing gallstone. GI performed an ERCP and placed a stent 01/28/18. 01/29 patient's Hgb dropped from 11.8 to 9.0 over night and on repeat to 7.5 Patient had elevation in her Amylase and Lipase 01/29 and an increasing Lipase on repeat Type and Cross ordered CT abd/pelvis showed "Large subcapsular hematoma within the liver measuring 10.2 x 19.4 cm on coronal imaging. The hematoma has mixed attenuation. There is compression of the hepatic parenchyma. Several poorly defined indeterminate areas of decreased attenuation are present within the hepatic parenchyma. A biliary stent is in place with no significant biliary dilatation. Post cholecystectomy clips in the gallbladder fossa. The spleen, and adrenal glands are unremarkable. Mild edematous changes are suggested throughout the pancreas. No focal pancreatic or peripancreatic fluid collection. " IV fluids started. Stopped standing NSAID and toradol for breakthrough pain due to bleeding risk. Transfusing 2 units of PRBC will check H/H after transfusion. Started fentanyl patch for pain control and increased percocet to Q4H 01/30: Patient's abd pain improved. Hgb responded to transfusion appropriately Patient's Transaminases and Lipase continue to trend down. continue IV abx per GI recommendations. current pain control strict I's & O's Serial abdominal exams continue to monitor closely (2) Acute blood loss anemia Status: Acute See above for plan. (3) Subcapsular hematoma of liver Status: Acute Likely secondary to ERCP. For management and recommendations of Hematoma will defer to GI. (4) Elevated amylase and lipase Status: Acute See Plan above (5) Restless leg syndrome Status: Acute Started patient on Gabapentin for RLS Likely will improve with transfusion as well an iron deficiency is a major cause of RLS. Anemia likely exacerbating her underlying RLS. Improved. Subjective Patient reports: no new complaints, feels better, still having pain, voiding w/ o difficulty, flatus, bowel movement, afebrile Narrative: Patient seen and examined by me at bedside. Patient's Hgb improved post transfusion. Patient reports improvement in pain in her RUQ. Patient reports distention of belly has improved. Patient denies nuasea, vomiting, diarrhea, fever. Patient reports improvement in restless leg syndrome. Objective Vital Signs - Last 8 Hours Temp Pulse Resp BP Pulse Ox 01/30/18 04:13 99.3 F 98 17 111/75 95 Intake and Output 01/29/18 01/29/18 01/30/18 15:59 23:59 07:59 Intake Total 344 / 1766 460 / 460 1120 / 1120 Balance 344 / 1766 460 / 460 1120 / 1120 Intake: IV Fluids 220 / 220 1120 / 1120 0.9 % Sodium Chloride 1,000 ML 1000 / 1000 @ 100 mls/hr IVC .Q10H [facility] Rx#: [id number] Ofirmev 1,000 mg/100 ml 1,000 100 / 100 mg In 100 ml @ 400 mls/hr IVPB Q6H [facility] Rx#:[id number] Zosyn 3.375 GM In 0.9 % Sodium 100 / 100 100 / 100 Chloride (Mini-Bag +) 100 ML @ 25 mls/hr IVPB Q8H [facility] Rx#: [id number] Mefoxin 2,000 MG In Water for 20 / 20 20 / 20 inj. (sterile) 20 ML @ 300 mls/ hr IVPB Q8HR [facility] Rx#:[id number] Oral 240 / 240 Blood Product 344 / 344 Rbcs Leuko Poor As-1 Unit 344 / 344 [id number] Other: Meal Dinner Percent of Meal Consumed 70% - General physical appearance well developed, well nourished, no distress, moderate pain - ENT normal mucosa, no hearing loss - Neck Neck exam: trachea midline - Respiratory normal expansion, normal respiratory effort, clear to auscultation - Cardiovascular Cardiovascular exam: Present: RRR, tachycardia, regular rhythm, no murmurs/rubs/ gallops - Abdomen Abdomen: Present: bowel sounds present, soft, tender Abdominal Tenderness: diffusely - Incision Incision: Present: clean and dry, intact - Neurologic normal coordination, normal sensation - Psychiatric oriented to time, oriented to person, oriented to place, speech is normal, memory intact - Labs 01/30/18 05:53 01/30/18 09:09 Diabetes panel 01/30/18 Range/Units 05:53 AST 161 H (13-39) Units/L ALT 353 H (7-52) Units/L Alkaline Phosphatase 150 H (34-104) Units/L Albumin 2.9 L (3.5-5.7) g/dL Calcium panel 01/30/18 Range/Units 05:53 Albumin 2.9 L (3.5-5.7) g/dL Adrenal panel 01/30/18 Range/Units 05:53 Total Bilirubin 0.8 (0.3-1.0) mg/dL AST 161 H (13-39) Units/L ALT 353 H (7-52) Units/L Alkaline Phosphatase 150 H (34-104) Units/L Albumin 2.9 L (3.5-5.7) g/dL - VTE Documentation of Mechanical Device: Intermittent pneumatic compression device Consult Discharge Plan - Plan Instructions: Laparoscopic Cholecystectomy (DC) Additional Instructions: General Surgical Discharge Instructions 1. No pushing, pulling, or lifting greater than 15 lbs for 4 weeks (depending upon procedure). 2. You may shower beginning today, but no tub baths, soaking, or swimming for 2 weeks. 3. You may resume driving when you are off narcotics and are safe to react in a car. 4. Do not take suboxone with percocet. Take oxycodone only if needed for discomfort. You may take one 500 mg Tylenol with the oxycodone or in between doses as long as you do not exceed 4Grams of acetaminophen daily. 5. Take stool softeners (Colace) or a water based laxative (Miralax) while taking narcotics. You may hold for loose stools. 6. Report any fevers greater than 100.5F, increase abdominal discomfort, drainage that looks like pus, increased redness or pain at the surgical site, or any vomiting. 7. Report any pain in the calves, shortness of breath, or rapid heartbeat. 8. Follow-up in the office as directed. 9. If you were prescribed antibiotics, do not stop them without talking to your provider. Referrals: Abeba Cuellar CNP [Advanced Practice Nurse] - 02/10/18 1:15 pm Rosanna Canela MD [Partnered Physician] - (2-4 weeks to schedule Stent removal) Prescriptions: Sulfamethoxazole/Trimeth DS [Bactrim Ds] 1 tab PO BID #28 tablet <Ady Gomez - Last Filed: 01/31/18 16:56> Date of Encounter: 01/30/18 - Assessment and Plan (1) Acute cholecystitis Status: Acute Objective Vital Signs - Last 8 Hours Temp Pulse Resp BP Pulse Ox 01/31/18 11:09 98.4 F 85 16 110/71 96 Intake and Output 01/31/18 01/31/18 01/31/18 07:59 15:59 23:59 Intake Total 440 / 440 240 / 240 Output Total 350 / 350 Balance 440 / 440 -110 / -110 Intake: IV Fluids 320 / 320 120 / 120 Ofirmev 1,000 mg/100 ml 1,000 200 / 200 mg In 100 ml @ 400 mls/hr IVPB Q6H [facility] Rx#:[id number] Zosyn 3.375 GM In 0.9 % Sodium 100 / 100 100 / 100 Chloride (Mini-Bag +) 100 ML @ 25 mls/hr IVPB Q8H [facility] Rx#: [id number] Mefoxin 2,000 MG In Water for 20 / 20 20 / 20 inj. (sterile) 20 ML @ 300 mls/ hr IVPB Q8HR [facility] Rx#:[id number] Oral 120 / 120 120 / 120 Output: Urine 350 / 350 Other: # Voids 1 - Labs 01/31/18 04:21 01/31/18 04:21 Diabetes panel 01/31/18 Range/Units 04:21 Sodium 138 (136-145) mEq/L Potassium 3.7 (3.5-5.1) mEq/L Chloride 111 H (98-107) mEq/L Carbon Dioxide 19 L (23-29) mEq/L BUN 6 (6-20) mg/dL Creatinine 0.47 L (0.60-1.20) mg/dL Glucose 73 (70-105) mg/dL Calcium 8.3 L (8.6-10.3) mg/dL AST 79 H (13-39) Units/L ALT 236 H (7-52) Units/L Alkaline Phosphatase 161 H (34-104) Units/L Albumin 2.9 L (3.5-5.7) g/dL Calcium panel 01/31/18 Range/Units 04:21 Calcium 8.3 L (8.6-10.3) mg/dL Albumin 2.9 L (3.5-5.7) g/dL Pituitary panel 01/31/18 Range/Units 04:21 Sodium 138 (136-145) mEq/L Potassium 3.7 (3.5-5.1) mEq/L Chloride 111 H (98-107) mEq/L Carbon Dioxide 19 L (23-29) mEq/L BUN 6 (6-20) mg/dL Creatinine 0.47 L (0.60-1.20) mg/dL Glucose 73 (70-105) mg/dL Calcium 8.3 L (8.6-10.3) mg/dL Adrenal panel 01/31/18 Range/Units 04:21 Sodium 138 (136-145) mEq/L Potassium 3.7 (3.5-5.1) mEq/L Chloride 111 H (98-107) mEq/L Carbon Dioxide 19 L (23-29) mEq/L BUN 6 (6-20) mg/dL Creatinine 0.47 L (0.60-1.20) mg/dL Glucose 73 (70-105) mg/dL Calcium 8.3 L (8.6-10.3) mg/dL Total Bilirubin 0.6 (0.3-1.0) mg/dL AST 79 H (13-39) Units/L ALT 236 H (7-52) Units/L Alkaline Phosphatase 161 H (34-104) Units/L Albumin 2.9 L (3.5-5.7) g/dL - Attending Attestation Ady Gomez MD I examined this patient and my medical decision-making was reviewed with the Resident Physician. I agree with the documented findings, disposition and treatment plan as described except to the extent set forth below. The patient is seen and evaluated on morning rounds with resident. Her liver function tests are improving. Her subcapsular hematoma seems to have stabilized. We will plan on an additional 24 hours of observation to ensure stability prior to discharge. Continue with pain control Ady Gomez MD FACS
[2018-01-30] MEDS: Gabapentin 300 MG CAPSULE PO SCH ×2 (09:14→20:47)
[2018-01-30 09:37] LABS: BUN/Creatinine Ratio 13 (6-26); Blood Urea Nitrogen 6 mg/dL (6-20); Calcium 8.4 mg/dL (8.6-10.3); Carbon Dioxide 21 mEq/L (23-29); Chloride 112 mEq/L (98-107); Glucose 72 mg/dL (70-105); Osmolality,Calculated 282 (280-300); Potassium 3.7 mEq/L (3.5-5.1); Sodium 138 mEq/L (136-145); eGFR For African Americans > 60; eGFR For Non-African Americans > 60
[2018-01-31] MEDS: *HR* OxyCODONE/APAP 10/325 TABLET PO PRN ×4 (01:51→14:33)
[2018-01-31 04:55] LABS: Basophils % 0.3 %; Eosinophils # 0.2 K/mcL (0.0-0.6); Eosinophils % 1.9 %; Hematocrit 25.7 % (35.3-44.9); Hemoglobin 8.7 g/dL (11.5-15.4); Immature Granulocytes % 0.4 % (0-4); Lymphocytes # 1.7 K/mcL (0.6-4.6); Lymphocytes % 17.4 %; Mean Corpuscular HGB Conc 33.9 g/dL (31.6-35.5); Mean Corpuscular Hemoglobin 30.6 pg (28.0-33.3); Mean Corpuscular Volume 90.5 fL (83.0-100.0); Mean Platelet Volume 10.6 fL (9.4-12.4); Monocytes % 10.6 %; Neutrophils # 6.6 K/mcL (1.6-8.9); Platelet Count 242 K/mcL (140-400); Red Blood Count 2.84 M/mcL (3.82-4.97); Red Cell Distribution Width 14.5 % (11.5-14.5); Segmented Neutrophils % 69.4 %
[2018-01-31 05:40] LABS: Alanine Aminotransferase 236 Units/L (7-52); Albumin 2.9 g/dL (3.5-5.7); Albumin/Globulin Ratio 1.2 (1.1-2.2); Alkaline Phosphatase 161 Units/L (34-104); Aspartate Amino Transferase 79 Units/L (13-39); BUN/Creatinine Ratio 13 (6-26); Bilirubin,Total 0.6 mg/dL (0.3-1.0); Blood Urea Nitrogen 6 mg/dL (6-20); Calcium 8.3 mg/dL (8.6-10.3); Carbon Dioxide 19 mEq/L (23-29); Chloride 111 mEq/L (98-107); Globulin 2.4 g/dL (2.4-3.5); Glucose 73 mg/dL (70-105); Osmolality,Calculated 282 (280-300); Potassium 3.7 mEq/L (3.5-5.1); Sodium 138 mEq/L (136-145); Total Protein 5.3 g/dL (6.4-8.9); eGFR For African Americans > 60; eGFR For Non-African Americans > 60
[2018-01-31] MEDS: Acetaminophen IV 1,000 MG/100 ML INFUS..BTL IVPB SCH ×2 (06:00→11:34)
[2018-01-31] MEDS: Piperacillin/Tazobactam 3.375 GM in 0.9 % Sodium Chloride Mini Bag 100 ML IVPB SCH (06:00)
[2018-01-31] MEDS: Gabapentin 300 MG CAPSULE PO SCH (08:34)
[2018-01-31] MEDS: cefOXitin 2,000 MG in Water for inj. (sterile) 20 ML 20 ML IVPB SCH (08:34)
--- NOTE | 2018-01-31 08:39 | General Surgery Progress Note ---
Date of Encounter: 01/31/18 Time of Encounter: 07:30 - Assessment and Plan (1) Acute cholecystitis Current Visit: Yes Status: Acute POD5 Lap dewey 01/28 ERCP with stenting 01/29 precipitous drop in Hgb 11.9 to 9.0 to 7.5; transfused 2UPRBC 01/30 abd pain improved, hbg improved to 8s and 9s; hepatic panel downtrending 01/31 Hgb 9.5 (8.8, 8.9) AST 79 (161), ALT 236 (353); pt reports less distention and abd pain Plan: continuing zosyn q8h and current pain control Percocet 10mg q6h prn strict i/os serial abd exams (2) Acute blood loss anemia Current Visit: Yes Status: Acute Improved as MDM from (1) (3) Subcapsular hematoma of liver Current Visit: Yes Status: Acute Hgb stabilizing x 2 days; hepatic panel improved, pt less symptomatic wih distention/pain. GI consulted (4) Elevated amylase and lipase Current Visit: Yes Status: Acute lipase wnl at 73, downtrended from 544 Subjective Narrative: Pt is resting comfortably in bed, accompanied by mother. She says her distention as improved, she has mild RUQ pain. She has a limited appetite, able to adequately urinate/BM, no blood in stool/urine/PO. Her pain is under control. Objective Vital Signs - Last 8 Hours Temp Pulse Resp BP Pulse Ox 01/31/18 07:14 98.1 F 93 15 129/87 94 01/31/18 03:55 98.2 F 80 14 114/76 96 Intake and Output 01/30/18 01/31/18 01/31/18 23:59 07:59 15:59 Intake Total 220 / 220 340 / 340 Output Total 0 / 0 Balance 220 / 220 340 / 340 Intake: IV Fluids 220 / 220 220 / 220 Ofirmev 1,000 mg/100 ml 1,000 100 / 100 100 / 100 mg In 100 ml @ 400 mls/hr IVPB Q6H [facility] Rx#:[id number] Zosyn 3.375 GM In 0.9 % Sodium 100 / 100 100 / 100 Chloride (Mini-Bag +) 100 ML @ 25 mls/hr IVPB Q8H [facility] Rx#: [id number] Mefoxin 2,000 MG In Water for inj. (sterile) 20 ML @ 300 mls/ hr IVPB Q8HR [facility] Rx#:[id number] Oral 0 / 0 120 / 120 Output: Urine 0 / 0 Other: # Voids 1 - General physical appearance well developed, well nourished, no distress - Eyes normal ocular movement - ENT normal mucosa - Respiratory normal respiratory effort, clear to auscultation - Cardiovascular Cardiovascular exam: Present: RRR, no murmurs/rubs/gallops - Abdomen Abdomen: Present: bowel sounds present, soft. Absent: guarding, rigid - Incision Incision: Present: clean and dry - Psychiatric speech is normal, memory intact - Labs 01/31/18 04:21 01/31/18 04:21 Diabetes panel 01/30/18 01/31/18 Range/Units 09:09 04:21 Sodium 138 138 (136-145) mEq/L Potassium 3.7 3.7 (3.5-5.1) mEq/L Chloride 112 H 111 H (98-107) mEq/L Carbon Dioxide 21 L 19 L (23-29) mEq/L BUN 6 6 (6-20) mg/dL Creatinine 0.45 L 0.47 L (0.60-1.20) mg/dL Glucose 72 73 (70-105) mg/dL Calcium 8.4 L 8.3 L (8.6-10.3) mg/dL AST 79 H (13-39) Units/L ALT 236 H (7-52) Units/L Alkaline Phosphatase 161 H (34-104) Units/L Albumin 2.9 L (3.5-5.7) g/dL Calcium panel 01/30/18 01/31/18 Range/Units 09:09 04:21 Calcium 8.4 L 8.3 L (8.6-10.3) mg/dL Albumin 2.9 L (3.5-5.7) g/dL Pituitary panel 01/30/18 01/31/18 Range/Units 09:09 04:21 Sodium 138 138 (136-145) mEq/L Potassium 3.7 3.7 (3.5-5.1) mEq/L Chloride 112 H 111 H (98-107) mEq/L Carbon Dioxide 21 L 19 L (23-29) mEq/L BUN 6 6 (6-20) mg/dL Creatinine 0.45 L 0.47 L (0.60-1.20) mg/dL Glucose 72 73 (70-105) mg/dL Calcium 8.4 L 8.3 L (8.6-10.3) mg/dL Adrenal panel 01/30/18 01/31/18 Range/Units 09:09 04:21 Sodium 138 138 (136-145) mEq/L Potassium 3.7 3.7 (3.5-5.1) mEq/L Chloride 112 H 111 H (98-107) mEq/L Carbon Dioxide 21 L 19 L (23-29) mEq/L BUN 6 6 (6-20) mg/dL Creatinine 0.45 L 0.47 L (0.60-1.20) mg/dL Glucose 72 73 (70-105) mg/dL Calcium 8.4 L 8.3 L (8.6-10.3) mg/dL Total Bilirubin 0.6 (0.3-1.0) mg/dL AST 79 H (13-39) Units/L ALT 236 H (7-52) Units/L Alkaline Phosphatase 161 H (34-104) Units/L Albumin 2.9 L (3.5-5.7) g/dL - VTE Documentation of Mechanical Device: Intermittent pneumatic compression device Consult Discharge Plan - Plan Referrals: Abeba Cuellar CNP [Advanced Practice Nurse] - 02/10/18 1:15 pm
[2018-01-31 11:11] VITALS: BP 110/71
--- NOTE | 2018-01-31 13:55 | Discharge Summary ---
- NOTES TO OUTPATIENT PROVIDER Notes to Outpatient Provider: Will need repeat CT in 3-4 weeks to assess for resolution of hematoma (per GI recommendations) Date of Encounter: 01/31/18 Time of Encounter: 13:58 - Discharge Diagnosis (1) S/P laparoscopic cholecystectomy Priority: Primary Status: Acute (2) Transaminitis Priority: Secondary Status: Acute (3) Anemia Priority: Secondary Status: Acute Qualifiers: Anemia type: other cause Other causes of anemia: other cause, not classified Qualified Code(s): D64.89 - Other specified anemias (4) Acute blood loss anemia Priority: Secondary Status: Acute (5) Subcapsular hematoma of liver Priority: Secondary Status: Acute General Surgery Exam Initial Vital Signs Temp Pulse Resp BP Pulse Ox 98.2 F 105 16 134/87 99 01/25/18 20:24 01/25/18 20:24 01/25/18 20:24 01/25/18 20:24 01/25/18 20:24 VITAL SIGNS: Reviewed. See [facility] GENERAL: In no apparent distress. HEENT: Normocephalic, atraumatic, pupils are equal and reactive, extraocular motions intact, oropharynx is pink and moist, there is no neck adenopathy or JVD noted. CHEST/RESPIRATORY: The thorax is free from signs of trauma. Lung sounds: clear to auscultation, normal respiratory effort CARDIAC: Regular rate and rhythm. Normal S1 and S2, without murmurs, gallops, or rubs. VASCULAR: No Edema. 2+ peripheral pulses. ABDOMEN: soft, tender right upper quadrant, active bowel sounds. INCISION: Surgical incision is clean, dry, and intact. There are no signs of cellulitis or infection noted. MUSCULOSKELETAL: Good range of motion of all major joints. Extremities without clubbing, cyanosis or edema. NEUROLOGIC EXAM: Alert and oriented x 3. Speech normal. Follows commands. PSYCHIATRIC: Mood normal. SKIN: No rash or lesions. - Hospital Course Hospital course: Ms. Rivera is a 17 year old female who presented for RUQ. She was noted acute cholecystitis and cholelithiasis. She was taken to the operating room where she underwent a laparoscopic cholecystectomy and choliangiogram. She was noted to have choledocholithiasis. She was consulted and performed an ERCP which noted sludge and stent placement. She was recommended to have an EGD and 2 months for stent removal. Her hospital course was further complicated by acute blood loss anemia and notable subcapsular liver hematoma measuring approximately 10 x 20 cm. She was transfused 2 units of packed red blood cells this admission. Her hemoglobin is stable, her liver functions have improved, she is tolerating a full liquid diet without nausea or vomiting, and her abdominal discomfort is well-controlled. Her vital signs are stable and she is afebrile. We will begin discharge planning to home with a surgical follow-up in approximately 10 days. She is recommended to follow-up with G.I. and 2 to 4 weeks. G.I. as requested in order be placed for a follow-up CT to assess for resolution of the hematoma. G.I.'s place the patient on prophylactic antibiotics and she is discharged with them. She does have a history of illicit drug abuse. She was on Suboxone as an outpatient 2.5 mg. She is given a prescription for Percocet and strongly reminded to refrain from using Percocet and Suboxone at the same time. - Time Spent with Patient Total time spent providing and/or coordinating discharge services: - Discharge Medications Prescriptions: Sulfamethoxazole/Trimeth DS [Bactrim Ds] 1 tab PO BID #28 tablet Home Medications: Vit Calc,Iron,Folic [ Vitamins] 1 tab PO DAILY 10/26/17 [ History] HYDROcodone/Acet 5/325 mg [[facility] 5-325 mg] 1 tab PO Q6H PRN 2 Days #8 tab [Rx] Ondansetron ODT [Zofran ODT] 4 mg SL Q6HR #8 tab.rapdis 01/22/18 [Rx] Sulfamethoxazole/Trimeth DS [Bactrim Ds] 1 tab PO BID #28 tablet 01/31/18 [Rx] Allergies/Adverse Reactions: 3 Allergy/AdvReac Type Severity Reaction Status Date / Time Amoxicillin [From Augmentin] AdvReac Agitated Verified 01/25/18 20:26 clavulanic acid AdvReac Agitated Verified 01/25/18 20:26 [From Augmentin] Date of admission: 01/29/18 14:06 Primary care physician: PCP NONE Discharging clinician: Ady Kowalski) Anticipated date of discharge: 01/31/18 Labs on day of discharge: Labs from last 24 hours 01/31/18 01/31/18 04:21 04:21 WBC 9.5 RBC 2.84 L Hgb 8.7 L Hct 25.7 L MCV 90.5 MCH 30.6 MCHC 33.9 RDW 14.5 Plt Count 242 MPV 10.6 Immature Gran % 0.4 Seg Neutrophils % 69.4 Lymphocytes % 17.4 Monocytes % 10.6 Eosinophils % 1.9 Basophils % 0.3 Neutrophils # 6.6 Lymphocytes # 1.7 Monocytes # 1.0 Eosinophils # 0.2 Basophils # 0.0 Sodium 138 Potassium 3.7 Chloride 111 H Carbon Dioxide 19 L BUN 6 Creatinine 0.47 L Est GFR ( Amer) > 60 Est GFR (Non-Af Amer) > 60 BUN/Creatinine Ratio 13 Glucose 73 Calculated Osmolality 282 Calcium 8.3 L Total Bilirubin 0.6 AST 79 H ALT 236 H Alkaline Phosphatase 161 H Serum Total Protein 5.3 L Albumin 2.9 L Globulin 2.4 Albumin/Globulin Ratio 1.2 - Patient Status Disposition: Home, Self-Care Condition: Fair Functional capacity at discharge: independent ambulation Overall status at discharge: patient is progressing back to baseline - Ambulatory Orders Ambulatory Orders: CT abd pelvis w iv and oral [CT] Time Frame: 4 Weeks, Facility: [facility], Location: Radiology Complete Blood Count [HEME] Time Frame: 02/10/18, Facility: [facility], Location: Lab - Discharge Instructions Instructions: Laparoscopic Cholecystectomy (DC) Follow Up With: Abeba Cuellar CNP [Advanced Practice Nurse] - 02/10/18 1:15 pm Rosanna Canela MD [Partnered Physician] - (2-4 weeks to schedule Stent removal) Additional Instructions: General Surgical Discharge Instructions 1. No pushing, pulling, or lifting greater than 15 lbs for 4 weeks (depending upon procedure). 2. You may shower beginning today, but no tub baths, soaking, or swimming for 2 weeks. 3. You may resume driving when you are off narcotics and are safe to react in a car. 4. Do not take suboxone with percocet. Take oxycodone only if needed for discomfort. You may take one 500 mg Tylenol with the oxycodone or in between doses as long as you do not exceed 4Grams of acetaminophen daily. 5. Take stool softeners (Colace) or a water based laxative (Miralax) while taking narcotics. You may hold for loose stools. 6. Report any fevers greater than 100.5F, increase abdominal discomfort, drainage that looks like pus, increased redness or pain at the surgical site, or any vomiting. 7. Report any pain in the calves, shortness of breath, or rapid heartbeat. 8. Follow-up in the office as directed. 9. If you were prescribed antibiotics, do not stop them without talking to your provider. - Diet and Activity Activity: ambulate only with your walker Diet: advance to your usual diet
== END 2018-01-31 14:59 | disposition home or self-care (01) | DRG 263 ==
LOC: 3ANU 20:23 → EMEROO 20:23 → 3ANU 01-26 00:22
PROVIDERS: ADMIT Surgery; ATTEND Surgery

== ENCOUNTER 2019-12-19 14:43 | Observation (INO) ==
[2019-12-19] MEDS ORDERED: Isovue-370 500 ML BOTTLE IVP ONE (15:05)
[2019-12-19] MEDS ORDERED: Ondansetron 4 MG/2 ML VIAL IVP ONE (15:18)
[2019-12-19] MEDS ORDERED: 0.9 % Sodium Chloride 1,000 ML IVC ONE (15:18)
[2019-12-19] MEDS ORDERED: *HR* FentaNYL (PF) 100 MCG/2 ML VIAL IVP ONE (15:18)
[2019-12-19 15:24] LABS: Bilirubin,Urine Small (Negative); Blood,Urine Large (Negative); Clarity,Urine Cloudy (Clear); Glucose,Urine (UA) Normal (Normal); Ketones,Urine 15 mg/dL (Negative); Leukocyte Esterase,Urine Moderate (Negative); Nitrite,Urine Negative (Negative); Protein,Urine 30 mg/dL (Neg-Trace); Specific Gravity,Urine > 1.030 (1.010-1.025); Urobilinogen,Urine Normal (Normal)
[2019-12-19 15:27] LABS: Bacteria,Urine Few per hpf (None-Few); Squamous Epithelial Cell,Urine Many per lpf (None-Few); WBC,Urine 30-50 per hpf (0-3)
[2019-12-19 15:29] LABS: Color,Urine Yellow (Yellow)
[2019-12-19 15:37] LABS: Basophils % 0.5 %; Eosinophils % 0.5 %; Hematocrit 39.5 % (35.3-44.9); Hemoglobin 13.9 g/dL (11.5-15.4); Immature Granulocytes % 0.3 % (0-4); Lymphocytes # 2.4 K/mcL (0.6-4.6); Lymphocytes % 31.5 %; Mean Corpuscular HGB Conc 35.2 g/dL (31.6-35.5); Mean Corpuscular Volume 93.8 fL (83.0-100.0); Mean Platelet Volume 10.5 fL (9.4-12.4); Monocytes # 0.5 K/mcL (0.0-1.3); Monocytes % 6.4 %; Neutrophils # 4.7 K/mcL (1.6-8.9); Platelet Count 279 K/mcL (140-400); Red Blood Count 4.21 M/mcL (3.82-4.97); Segmented Neutrophils % 60.8 %; White Blood Count 7.7 K/mcL (4.3-11.1)
[2019-12-19 15:57] LABS: Alanine Aminotransferase 11 Units/L (7-52); Albumin 4.6 g/dL (3.5-5.7); Albumin/Globulin Ratio 1.6 (1.1-2.2); Alkaline Phosphatase 67 Units/L (34-104); Aspartate Amino Transferase 15 Units/L (13-39); BUN/Creatinine Ratio 17 (6-26); Bilirubin,Direct 0.2 mg/dL (0.0-0.2); Bilirubin,Indirect 0.4 mg/dL (0.0-1.0); Bilirubin,Total 0.6 mg/dL (0.3-1.0); Blood Urea Nitrogen 12 mg/dL (6-20); Calcium 9.8 mg/dL (8.6-10.3); Carbon Dioxide 24 mEq/L (23-29); Chloride 105 mEq/L (98-107); Globulin 2.9 g/dL (2.4-3.5); Glucose 130 mg/dL (70-105); Lipase 18 Units/L (11-82); Osmolality,Calculated 284 (280-300); Potassium 3.4 mEq/L (3.5-5.1); Sodium 136 mEq/L (136-145); Total Protein 7.5 g/dL (6.4-8.9); eGFR For African Americans > 60 (> 60); eGFR For Non-African Americans > 60 (> 60)
[2019-12-19] MEDS ORDERED: Naloxone 0.4 MG/ML INJ IVP PRN (18:34)
[2019-12-19] MEDS ORDERED: Ondansetron ODT 4 MG TAB.RAPDIS SL PRN (18:34)
[2019-12-19] MEDS: D5% in 0.45% NACL 1,000 ML IVC SCH (20:31)
[2019-12-19] MEDS ORDERED: Nicotine 14 MG PATCH.TD24 TD SCH (21:30)
[2019-12-20] MEDS: Acetaminophen 325 MG TABLET PO PRN ×2 (00:07→16:20)
[2019-12-20] MEDS ORDERED: *HR* LORazepam 2 MG/ML VIAL IVP ONE ×2 (01:30→22:46)
[2019-12-20] MEDS ORDERED: *HR* Midazolam HCl 2 MG/2 ML VIAL ONE (08:09)
[2019-12-20] MEDS ORDERED: *HR* Rocuronium Bromide 50 MG/5 ML VIAL ONE (08:09)
[2019-12-20] MEDS ORDERED: *HR* FentaNYL (PF) 100 MCG/2 ML VIAL ONE (08:09)
[2019-12-20] MEDS ORDERED: Dexamethasone 4 MG/ML VIAL ONE (08:09)
[2019-12-20] MEDS ORDERED: Lidocaine HCL 4 ML Topical Solution (Laryng-O-Jet Kit Sterile Pak) TP ONE (08:09)
[2019-12-20] MEDS ORDERED: Ondansetron 4 MG/2 ML VIAL ONE (08:09)
[2019-12-20] MEDS ORDERED: Albuterol 2.5 MG/3 ML NEBULIZER ONE (08:28)
[2019-12-20] MEDS ORDERED: Albuterol 2.5 MG/3 ML NEBULIZER IH ONE (08:31)
[2019-12-20] MEDS ORDERED: Acetaminophen IV 1,000 MG/100 ML INFUS..BTL ONE (09:28)
[2019-12-20] MEDS ORDERED: Clindamycin 600 MG/50 ML 600 MG/50 ML IV.SOLN IVPB ONE (09:37)
[2019-12-20] MEDS ORDERED: Clindamycin 900 MG/50 ML 900 MG/50 ML IV.SOLN IVPB ONE (09:45)
[2019-12-20] MEDS ORDERED: Neostigmine Methylsulfate 3 MG/3 ML SYRINGE ONE (10:20)
[2019-12-20] MEDS ORDERED: *HR* OxyCODONE Immed Rel 5 MG TABLET PO PRN (10:45)
[2019-12-20] MEDS ORDERED: *HR* OxyCODONE Immed Rel 5 MG TABLET PO ONE (10:45)
[2019-12-20] MEDS ORDERED: Ondansetron 4 MG/2 ML VIAL IVP ONE (10:45)
[2019-12-20] MEDS ORDERED: *HR* HYDROmorphone PF 0.5 MG/0.5 ML SYRINGE IVP PRN (10:45)
[2019-12-20] MEDS ORDERED: *HR* Promethazine 25 MG/ML VIAL IVP PRN (10:45)
[2019-12-20] MEDS: *HR* HYDROmorphone PF 0.5 MG/0.5 ML SYRINGE IVP PRN ×2 (10:53→11:01)
[2019-12-20] MEDS ORDERED: Ringers Solution, Lactated 1,000 ML ONE (11:12)
[2019-12-20] MEDS: D5% in 0.45% NACL 1,000 ML IVC SCH (12:22)
[2019-12-20] MEDS: Ibuprofen 400 MG TABLET PO PRN ×2 (12:26→18:15)
[2019-12-20 13:40] LABS: Basophils % 0.2 %; Hematocrit 37.2 % (35.3-44.9); Hemoglobin 12.4 g/dL (11.5-15.4); Immature Granulocytes % 0.2 % (0-4); Lymphocytes # 0.7 K/mcL (0.6-4.6); Lymphocytes % 11.7 %; Mean Corpuscular HGB Conc 33.3 g/dL (31.6-35.5); Mean Corpuscular Hemoglobin 32.6 pg (28.0-33.3); Mean Corpuscular Volume 97.9 fL (83.0-100.0); Mean Platelet Volume 10.6 fL (9.4-12.4); Monocytes # 0.1 K/mcL (0.0-1.3); Monocytes % 1.8 %; Neutrophils # 5.2 K/mcL (1.6-8.9); Platelet Count 240 K/mcL (140-400); Red Cell Distribution Width 12.1 % (11.5-14.5); Segmented Neutrophils % 86.1 %; White Blood Count 6.1 K/mcL (4.3-11.1)
[2019-12-20 14:01] LABS: BUN/Creatinine Ratio 8 (6-26); Blood Urea Nitrogen 5 mg/dL (6-20); Calcium 9.1 mg/dL (8.6-10.3); Carbon Dioxide 24 mEq/L (23-29); Chloride 107 mEq/L (98-107); Glucose 120 mg/dL (70-105); Magnesium 1.7 mg/dL (1.6-2.6); Osmolality,Calculated 278 (280-300); Phosphorous 2.7 mg/dL (2.7-4.5); Potassium 3.9 mEq/L (3.5-5.1); Sodium 135 mEq/L (136-145); eGFR For African Americans > 60 (> 60); eGFR For Non-African Americans > 60 (> 60)
[2019-12-21 06:41] VITALS: BP 102/64
== END 2019-12-21 10:23 | disposition home or self-care (01) ==
LOC: 3BNU 14:43 → EMEROOARM 14:43 → 3BNU 17:56
PROVIDERS: ADMIT Surgery; ATTEND Surgery